=== PATIENT | male | born 1980 | race American Indian/Alaskan Native ===

== ENCOUNTER 2017-05-17 14:00 | Emergency (ER) | payer SELFPAY ==
--- NOTE | 2017-05-17 14:58 | Emergency Department Report ---
Chief Complaint: Chest Pain Stated Complaint: CHEST PAIN/DIFFICULTY BREATHING Time Seen by Provider: 05/17/17 14:58 - HPI History of Present Illness: Patient here reports that he has been having chest pain 1 week and started coughing 5 days ago. He also reports difficulty breathing. He said he's been having nausea and some stomach cramping pain on and off. Denies any fever or chills. [id number] cough and cold medicine taken without any relief. Patient denies any history of blood clots personally or in his family, denies any long distance travel by car or airplane, denies any recent surgery or immobilization, denies any hormone therapy. He denies any swelling in his legs or any pain in his legs. Denies any history of heart disease or lung disease. - ROS Review of Systems: All systems are negative unless stated in HPI above - Exam Vital Signs: Vital Signs 05/17/17 14:23 Temperature 98.4 F Pulse Rate 99 H Respiratory 18 Rate Blood Pressure 127/85 O2 Sat by Pulse 99 Oximetry Physical Exam: Gen.: This is a 37-year-old male well-nourished well-developed in no acute distress. Lungs: Clear to auscultate bilaterally, normal work of breathing. Patient with dry cough. No use of accessory muscles to breathe. Abdomen: Soft, nontender to palpate in all quadrants, no guarding no rebound tenderness. No CVA tenderness CV: Patient EKG sinus tachycardia at 112 BPM. S1, S2 Extremity: No clubbing, cyanosis or edema. MSE screening note: Focused history and physical exam performed. Due to findings the following was ordered: ED Medical Decision Making - Medical Decision Making MDM: Patient screened by provider in triage area. Appropriate protocol initiated and patient to be seen in main ED by ED Disposition for MSE Condition: Stable
[2017-05-17 15:31] LABS: Basophils % (Auto) 0.8 % (0.0-1.8); Eosinophils % (Auto) 1.1 % (0.0-4.3); Hematocrit 42.2 % (35.5-45.6); Hemoglobin 14.1 gm/dl (11.8-15.2); Mean Corpuscular HGB Conc 33 % (32-34); Mean Corpuscular Hemoglobin 29 pg (28-32); Mean Corpuscular Volume 87 fl (84-94); Red Blood Count 4.85 M/mm3 (3.65-5.03); Red Cell Distribution Width 13.4 % (13.2-15.2); White Blood Count 5.5 K/mm3 (4.5-11.0)
[2017-05-17 15:32] LABS: Platelet Count 147 K/mm3 (140-440)
--- NOTE | 2017-05-17 15:32 | XRay Report ---
Chest 2 views. History: Shortness of breath. Findings: The heart is enlarged with left ventricular configuration. There is mild central venous congestion. The lungs are clear. No pleural fluid is seen. Impression: Cardiomegaly with mild central venous congestion.
[2017-05-17 15:34] LABS: Bilirubin,Urine NEG (Negative); Blood,Urine NEG (Negative); Ketones,Urine NEG (Negative); Leukocyte Esterase,Urine NEG (Negative); Mucus,Urine 1+ /HPF; Nitrite,Urine NEG (Negative); Protein,Urine <15 mg/dL mg/dL (Negative); RBC,Urine < 1.0 /HPF (0.0-6.0); Urobilinogen,Urine < 2.0 mg/dL (<2.0)
[2017-05-17 15:39] LABS: INR 0.97 (0.87-1.13)
[2017-05-17 15:40] LABS: Partial Thromboplastin Time 34.1 Sec. (24.2-36.6)
[2017-05-17 15:45] LABS: Anion Gap 20 mmol/L; BUN/Creatinine Ratio 10; Blood Urea Nitrogen 12 mg/dL (9-20); Calcium 8.8 mg/dL (8.4-10.2); Carbon Dioxide 24 mmol/L (22-30); Chloride 104.1 mmol/L (98-107); Glucose 88 mg/dL (75-100); Potassium 4.8 mmol/L (3.6-5.0); Sodium 143 mmol/L (137-145)
[2017-05-17 15:46] LABS: Alanine Aminotransferase 18 units/L (7-56); Albumin 3.8 g/dL (3.9-5); Albumin/Globulin Ratio 1.1 %; Alkaline Phosphatase 53 units/L (35-129); Total Protein 7.2 g/dL (6.3-8.2)
[2017-05-17 15:49] LABS: Bilirubin,Direct < 0.2 mg/dL (0-0.2); Bilirubin,Indirect 0.4 mg/dL
[2017-05-17] MEDS ORDERED: DUONEB *Not for PRN Use IH ONE (22:48)
[2017-05-18 01:53] VITALS: BP 117/71
[2017-05-18] MEDS ORDERED: DUONEB *Not for PRN Use IH ONE (02:57)
--- NOTE | 2017-05-18 03:03 | Emergency Department Report ---
ED Chest Pain HPI - General Chief Complaint: Chest Pain Stated Complaint: CHEST PAIN/DIFFICULTY BREATHING Time Seen by Provider: 05/17/17 14:58 Source: patient Mode of arrival: Ambulatory Limitations: No Limitations - History of Present Illness Initial Comments: 37 yo male who comes in today due to chest pain and shortness of breath times one week. He states that the shortness of breath is worse when he walks. He denies any past medical history, but does admit to tobacco use times over ten years. He admits to smoking ten cigarettes daily. -: week(s) (one ) Onset: during rest, during exertion Pain Location: other (diffusely ) Pain Radiation: none Severity: moderate Severity scale (0 -10): 0 Quality: aching Consistency: intermittent Worsens With: exertion Context: recent illness Other Symptoms: cough Treatments Prior to Arrival: none - Related Data On Oral Contraceptives: No Previous Rx's Medication Instructions Recorded Last Taken Type ALBUTEROL Inhaler [ProAir HFA 2 puff IH QID PRN #1 inhalation 05/18/17 Unknown Rx Inhaler] Allergies Allergy/AdvReac Type Severity Reaction Status Date / Time No Known Allergies Allergy Verified 05/17/17 14:23 Heart Score - HEART Score History: Slightly suspicious (Not suspicious at all) EKG: Non-specific (Sinus tachycardia) Age: < 45 Risk factors: No known risk factors Troponin: < normal limit HEART Score: 1 ED Review of Systems ROS: Stated complaint: CHEST PAIN/DIFFICULTY BREATHING Other details as noted in HPI Constitutional: no symptoms reported Eyes: denies: eye pain, eye discharge, vision change ENT: congestion Respiratory: see HPI, cough, shortness of breath Cardiovascular: as per HPI Endocrine: no symptoms reported Gastrointestinal: denies: abdominal pain, nausea, diarrhea Genitourinary: denies: urgency, dysuria Musculoskeletal: denies: back pain, joint swelling, arthralgia Skin: denies: rash, lesions Neurological: denies: headache, weakness, paresthesias Psychiatric: denies: anxiety, depression Hematological/Lymphatic: denies: easy bleeding, easy bruising ED Past Medical Hx - Past Medical History Previous Medical History?: No - Surgical History Past Surgical History?: Yes Additional Surgical History: Hernia repair - Social History Smoking Status: Current Every Day Smoker - Medications Home Medications: Home Medications Medication Instructions Recorded Confirmed Last Taken Type ALBUTEROL Inhaler [ProAir HFA 2 puff IH QID PRN #1 inhalation 05/18/17 Unknown Rx Inhaler] ED Physical Exam - General Limitations: No Limitations General appearance: alert, in no apparent distress - Head Head exam: Present: atraumatic, normocephalic - Eye Eye exam: Present: normal appearance - ENT ENT exam: Present: mucous membranes moist - Neck Neck exam: Present: normal inspection - Respiratory Respiratory exam: Present: decreased breath sounds (bilaterally-tight ) - Cardiovascular Cardiovascular Exam: Present: regular rate - Extremities Exam Extremities exam: Present: normal inspection - Back Exam Back exam: Present: normal inspection - Neurological Exam Neurological exam: Present: alert, oriented X3 - Psychiatric Psychiatric exam: Present: normal affect, normal mood - Skin Skin exam: Present: warm, dry, intact, normal color. Absent: rash ED Course Vital Signs 05/17/17 05/18/17 05/18/17 14:23 01:51 03:48 Temperature 98.4 F 98 F Pulse Rate 99 H 69 Pulse Rate [ 96 H Anterior Bilateral Throughout] Respiratory 18 18 Rate Respiratory 14 Rate [Anterior Bilateral Throughout] Blood Pressure 127/85 Blood Pressure 117/71 [Left] O2 Sat by Pulse 99 96 Oximetry 05/18/17 03:58 Temperature Pulse Rate Pulse Rate [ 98 H Anterior Bilateral Throughout] Respiratory Rate Respiratory 16 Rate [Anterior Bilateral Throughout] Blood Pressure Blood Pressure [Left] O2 Sat by Pulse Oximetry - Reevaluation(s) Reevaluation #1: 05/18/17 04:16 Patient much improved after solumedrol and duoneb treatment. Home with an albuterol inhaler for prn use. STEPHANIE score - Stephanie Score Age > 65: (0) No Aspirin use within the Past 7 Days: (0) No 3 or more CAD Risk Factors: (0) No 2 or more Angina events in past 24 hrs: (0) No Known CAD with more than 50% Stenosis: (0) No Elevated Cardiac Markers: (0) No ST Deviation Greater than 0.5mm: (0) No STEPHANIE Score: 0 ED Medical Decision Making - Lab Data Result diagrams: 05/17/17 15:13 05/17/17 15:13 - EKG Data EKG shows normal: sinus rhythm (sinus tachycardia ) Rate: tachycardia - EKG Data When compared to previous EKG there are: previous EKG unavailable Interpretation: no acute changes - Radiology Data Radiology results: report reviewed Critical care attestation.: If time is entered above; I have spent that time in minutes in the direct care of this critically ill patient, excluding procedure time. ED Disposition Clinical Impression: Bronchitis, Tobacco abuse Disposition: DC-01 TO HOME OR SELFCARE Is pt being admited?: No Does the pt Need Aspirin: No Condition: Stable Instructions: Chronic Bronchitis (ED), Acute Bronchitis (ED) Additional Instructions: Use medicine as directed. Please establish with a provider on discharge. Return to the ED for worsening shortness of breath, fever, chills, or cough. Prescriptions: ALBUTEROL Inhaler [ProAir HFA Inhaler] 2 puff IH QID PRN #1 inhalation PRN Reason: Shortness Of Breath Referrals: PRIMARY CARE, [Primary Care Provider] - 3-5 Days Time of Disposition: 04:21
== END 2017-05-18 06:44 | disposition home or self-care (01) ==
LOC: ED 14:00
DX: J40 Bronchitis, not specified as acute or chronic (principal); F17.210 Nicotine dependence, cigarettes, uncomplicated
CPT/HCPCS: 36415; 71020; 80048; 80074; 81001; 84484; 85025; 85379; 85610; 85730; 93005; 93010; 94640; 96372; 99284; J2930

== ENCOUNTER 2017-05-20 08:20 | Inpatient (IN) | payer OTHER ==
[2017-05-20 09:10] LABS: Basophils % (Auto) 0.7 % (0.0-1.8); Eosinophils % (Auto) 0.9 % (0.0-4.3); Hematocrit 43.1 % (35.5-45.6); Hemoglobin 13.6 gm/dl (11.8-15.2); Mean Corpuscular HGB Conc 32 % (32-34); Mean Corpuscular Hemoglobin 28 pg (28-32); Mean Corpuscular Volume 88 fl (84-94); Red Blood Count 4.91 M/mm3 (3.65-5.03); Red Cell Distribution Width 13.9 % (13.2-15.2); White Blood Count 6.1 K/mm3 (4.5-11.0)
--- NOTE | 2017-05-20 09:12 | XRay Report ---
ROUTINE CHEST, TWO VIEWS: HISTORY: Shortness of breath. Cardiomegaly, pulmonary venous congestion and small pleural effusions have developed since 05/17/17. No evidence for pneumonia or pneumothorax. Normal bony structures. IMPRESSION: Mild CHF.
[2017-05-20 09:20] LABS: Anion Gap 18 mmol/L; BUN/Creatinine Ratio 15; Blood Urea Nitrogen 15 mg/dL (9-20); Calcium 8.5 mg/dL (8.4-10.2); Carbon Dioxide 21 mmol/L (22-30); Chloride 110.2 mmol/L (98-107); Glucose 97 mg/dL (75-100); Potassium 4.5 mmol/L (3.6-5.0); Sodium 145 mmol/L (137-145)
[2017-05-20 09:21] LABS: Platelet Count 156 K/mm3 (140-440)
[2017-05-20] MEDS ORDERED: NACL 0.9% 1000 ML 1,000 ML IV ONE (09:21)
[2017-05-20 09:33] LABS: Alanine Aminotransferase 26 units/L (7-56); Albumin 3.7 g/dL (3.9-5); Albumin/Globulin Ratio 1.1 %; Alkaline Phosphatase 51 units/L (35-129); Lipase 33 units/L (13-60)
[2017-05-20 09:34] LABS: Bilirubin,Direct < 0.2 mg/dL (0-0.2); Bilirubin,Indirect 0.1 mg/dL
[2017-05-20] MEDS ORDERED: LASIX IV ONE (09:37)
[2017-05-20 09:47] LABS: Creatine Kinase MB 6.8 ng/mL (0.0-4.0)
[2017-05-20] MEDS ORDERED: DILAUDID IV ONE (09:48)
[2017-05-20] MEDS ORDERED: ZOFRAN IV ONE (09:48)
[2017-05-20] MEDS ORDERED: NACL 0.9% 1000 ML 1,000 ML ONE (09:50)
[2017-05-20] MEDS ORDERED: DILAUDID ONE (09:51)
[2017-05-20] MEDS ORDERED: ZOFRAN ONE (09:52)
--- NOTE | 2017-05-20 12:31 | Cat Scan Report ---
CTA CHEST: HISTORY: Shortness of breath, chest pain. COMPARISON: none. TECHNIQUE: Helical CT in 1.25mm intervals following IV contrast. Pulmonary embolus protocol. Sagittal and coronal reformatted images. Rotational MIP images. FINDINGS: Contrast bolus is satisfactory. No pulmonary embolus is identified. Thyroid gland: Normal. Tracheobronchial tree: Normal. Esophagus: Normal. Heart: Mild to moderate cardiomegaly. Pericardium: Moderate pericardial effusion. Mediastinum: Normal. Lung Hollis: Trace left pleural effusion and moderate layering right pleural effusion are identified. Mild compressive atelectasis in the lower lobes. No infiltrate, mass or pneumothorax. Musculoskeletal: Normal. Limited images of the upper abdomen suggesting numerous tiny liver and renal cysts. IMPRESSION: No evidence for pulmonary embolus. Findings compatible with mild CHF or volume overload. The liver and kidneys are incompletely imaged but there appear to be numerous tiny cysts. Polycystic liver and kidney disease?
--- NOTE | 2017-05-20 12:34 | Emergency Department Report ---
ED Shortness of Breath HPI - General Chief Complaint: Dyspnea/Respdistress Stated Complaint: SOB,CHEST PAIN Time Seen by Provider: 05/20/17 09:17 Source: patient, family Mode of arrival: Ambulatory Limitations: No Limitations - History of Present Illness Initial Comments: 37-year-old male with no significant past medical history presents to the hospital place of dyspnea 10 days. Patient has shortness of breath at rest, exertion, orthopnea, and PND. Patient was here on May 17 for similar symptoms. He received albuterol and was discharged on albuterol inhaler. Patient reports symptoms worsen despite treatment. Complains of nonproductive cough. Sternal chest pain that feels like a "constant punching sensation", and denies fever, recent travel, sick contacts, or calf tenderness. Patient has nausea and vomiting the last vomiting 4 days ago. Patient continues to have daily watery stools with 3 episodes a day. Crampy intermittent abdominal pain reported. Patient smoke cigarettes daily up until worsening dyspnea several days ago. - Related Data Previous Rx's Medication Instructions Recorded Last Taken Type ALBUTEROL Inhaler [ProAir HFA 2 puff IH QID PRN #1 inhalation 05/18/17 Unknown Rx Inhaler] Allergies Allergy/AdvReac Type Severity Reaction Status Date / Time No Known Allergies Allergy Verified 05/17/17 14:23 ED Review of Systems ROS: Stated complaint: SOB,CHEST PAIN Other details as noted in HPI Comment: All other systems reviewed and negative Other: Constitutional: No fevers chills Eyes: No eye pain visual changes ENT: No ear pain or throat pain Neck: Denies pain Respiratory: As per HPI Cardiovascular: As per HPI GI: As per HPI : Denies dysuria Musculoskeletal: Denies back pain Skin: Denies rash, lesions, erythema Neurologic: Denies headache, numbness, weakness Psychiatric: Denies suicidal ideation, hallucinations ED Past Medical Hx - Surgical History Additional Surgical History: Hernia repair - Social History Smoking Status: Current Every Day Smoker Substance Use Type: None - Medications Home Medications: Home Medications Medication Instructions Recorded Confirmed Last Taken Type ALBUTEROL Inhaler [ProAir HFA 2 puff IH QID PRN #1 inhalation 05/18/17 Unknown Rx Inhaler] ED Physical Exam - General Limitations: No Limitations - Other Other exam information: General: No limitations, patient is alert in no acute distress Head exam: Atraumatic, normocephalic Eyes exam: Normal appearance ENT: Moist mucous membrane, normal oropharynx Neck exam: Normal inspection, full range of motion, no meningismus nontender Respiratory exam: Bilateral crackles, mild tachypnea, no accessory muscle use Cardiovascular: Normal rate and rhythm, normal heart sounds, chest wall nontender Abdomen: Soft, nondistended, and nontender, with normal bowel sounds, no rebound, or guarding Extremity: Full range of motion normal inspection no deformity, no calf tenderness or edema Back: Normal Inspection, full range of motion, no tenderness Neurologic: Alert, oriented x3, cranial nerves intact, no motor or sensory deficit Psychiatric: normal affect, normal mood Skin: Warm, dry, intact ED Course Vital Signs 05/20/17 05/20/17 05/20/17 08:24 08:57 09:01 Temperature 97.4 F L 98.3 F Pulse Rate 86 110 H Respiratory 20 31 H 23 Rate Blood Pressure 152/86 Blood Pressure 136/66 [Left] O2 Sat by Pulse 97 94 99 Oximetry - Consultations Consultation #1: 05/20/17 12:40 case d/w Neda sumner, will evaluate pt ED Medical Decision Making - Lab Data Result diagrams: 05/20/17 08:51 05/20/17 08:51 Lab Results 05/20/17 05/20/17 05/20/17 Range/Units 08:51 08:51 08:51 WBC 6.1 (4.5-11.0) K/mm3 RBC 4.91 (3.65-5.03) M/mm3 Hgb 13.6 (11.8-15.2) gm/dl Hct 43.1 (35.5-45.6) % MCV 88 (84-94) fl MCH 28 (28-32) pg MCHC 32 (32-34) % RDW 13.9 (13.2-15.2) % Plt Count 156 (140-440) K/mm3 Lymph % (Auto) 36.8 H (13.4-35.0) % [place] % (Auto) 7.1 (0.0-7.3) % Eos % (Auto) 0.9 (0.0-4.3) % Baso % (Auto) 0.7 (0.0-1.8) % Lymph # 2.3 (1.2-5.4) K/mm3 [place] # 0.4 (0.0-0.8) K/mm3 Eos # 0.1 (0.0-0.4) K/mm3 Baso # 0.0 (0.0-0.1) K/mm3 Seg Neutrophils % 54.5 (40.0-70.0) % Seg Neutrophils # 3.3 (1.8-7.7) K/mm3 Sodium 145 (137-145) mmol/L Potassium 4.5 (3.6-5.0) mmol/L Chloride 110.2 H (98-107) mmol/L Carbon Dioxide 21 L (22-30) mmol/L Anion Gap 18 mmol/L BUN 15 (9-20) mg/dL Creatinine 1.0 (0.8-1.5) mg/dL Estimated GFR > 60 ml/min BUN/Creatinine Ratio 15 % Glucose 97 (75-100) mg/dL Calcium 8.5 (8.4-10.2) mg/dL Total Bilirubin 0.30 (0.1-1.2) mg/dL Direct Bilirubin < 0.2 (0-0.2) mg/dL Indirect Bilirubin 0.1 mg/dL AST 29 (5-40) units/L ALT 26 (7-56) units/L Alkaline Phosphatase 51 (35-129) units/L Total Creatine Kinase (55-170) units/L CK-MB (CK-2) (0.0-4.0) ng/mL CK-MB (CK-2) Rel Index (0-4) Troponin T (0.00-0.029) ng/mL NT-Pro-B Natriuret Pep (0-450) pg/mL Total Protein 7.0 (6.3-8.2) g/dL Albumin 3.7 L (3.9-5) g/dL Albumin/Globulin Ratio 1.1 % Lipase 33 (13-60) units/L 05/20/17 05/20/17 Range/Units 08:51 08:51 WBC (4.5-11.0) K/mm3 RBC (3.65-5.03) M/mm3 Hgb (11.8-15.2) gm/dl Hct (35.5-45.6) % MCV (84-94) fl MCH (28-32) pg MCHC (32-34) % RDW (13.2-15.2) % Plt Count (140-440) K/mm3 Lymph % (Auto) (13.4-35.0) % [place] % (Auto) (0.0-7.3) % Eos % (Auto) (0.0-4.3) % Baso % (Auto) (0.0-1.8) % Lymph # (1.2-5.4) K/mm3 [place] # (0.0-0.8) K/mm3 Eos # (0.0-0.4) K/mm3 Baso # (0.0-0.1) K/mm3 Seg Neutrophils % (40.0-70.0) % Seg Neutrophils # (1.8-7.7) K/mm3 Sodium (137-145) mmol/L Potassium (3.6-5.0) mmol/L Chloride (98-107) mmol/L Carbon Dioxide (22-30) mmol/L Anion Gap mmol/L BUN (9-20) mg/dL Creatinine (0.8-1.5) mg/dL Estimated GFR ml/min BUN/Creatinine Ratio % Glucose (75-100) mg/dL Calcium (8.4-10.2) mg/dL Total Bilirubin (0.1-1.2) mg/dL Direct Bilirubin (0-0.2) mg/dL Indirect Bilirubin mg/dL AST (5-40) units/L ALT (7-56) units/L Alkaline Phosphatase (35-129) units/L Total Creatine Kinase 553 H (55-170) units/L CK-MB (CK-2) 6.8 H (0.0-4.0) ng/mL CK-MB (CK-2) Rel Index 1.2 (0-4) Troponin T 0.012 (0.00-0.029) ng/mL NT-Pro-B Natriuret Pep 7505 H (0-450) pg/mL Total Protein (6.3-8.2) g/dL Albumin (3.9-5) g/dL Albumin/Globulin Ratio % Lipase (13-60) units/L - EKG Data -: EKG Interpreted by Ok EKG shows normal: sinus rhythm, axis (67), QRS complexes (95), ST-T waves (lat t inv, inf t inv) Rate: tachycardia (108) - EKG Data When compared to previous EKG there are: no significant change (05/17/17) - Radiology Data Radiology results: report reviewed cxr: cmg, mild chf ct chest angio: mild pulm embolus, findings compatible with mild chf or volume overload. - Medical Decision Making Patient will be admitted to the hospital for nausea CHF Lasix 20 mg IV given with repeat urine output in the ED Cardiology has been consulted - Differential Diagnosis chf, pneumonia, pe, bronchitis Critical Care Time: No Critical care attestation.: If time is entered above; I have spent that time in minutes in the direct care of this critically ill patient, excluding procedure time. ED Disposition Clinical Impression: Cardiomegaly, Acute CHF Disposition: OP ADMIT IP TO THIS HOSP Is pt being admited?: Yes Condition: Stable Time of Disposition: 12:34 (Dr Perez/hosp)
--- NOTE | 2017-05-20 13:05 | Consultation ---
History of Present Illness Consult date: 05/20/17 Requesting physician: MELODY MASSEY Consult reason: congestive heart failure History of present illness: The patient is a 37 YO male with a past medical history significant for occasional marijuana use and tobacco use. He presented with c/o chest pain, SOB and NAQVI for the past 1.5 weeks. He reports this his symptoms began when he developed a cold. He was experiencing nasal congestion and productive cough for several days. These symptoms resolved but his chest pain, SOB and NAQVI persisted. He describes his chest pain as a nonexertional, nonradiating midsternal "punching" pain which is sometimes aggravated by lying on his side. He states that he develops NAQVI with any activity at all, and cannot climb a flight of stairs without stopping to catch his breath. Patient also c/o nausea and vomiting and daily watery stools for the past several days. Prior to the past several weeks, he has worked as a biofuels plant construction worker framing [employer] and has had no difficulty with physical activity. Of note, pt was evaluated at [facility] ED on 05/17/2017 for similar symptoms. He received albuterol and was discharged on albuterol inhaler. He reports that his symptoms continued to worsen and thus he is seeking evaluation again. Chest CTA following admission was negative for PE, showed trace left pleural effusion and moderate layering right pleural effusion, numerous tiny cysts on the liver and kidneys. Pro-BNP 7505; total CK 553. Past History Past Medical History: No medical history Social history: other (occasional marijuana use). denies: smoking, alcohol abuse Family history: other (mother with "heart problems") Medications and Allergies Allergies Allergy/AdvReac Type Severity Reaction Status Date / Time No Known Allergies Allergy Verified 05/17/17 14:23 Home Medications Medication Instructions Recorded Confirmed Last Taken Type ALBUTEROL Inhaler [ProAir HFA 2 puff IH QID PRN #1 inhalation 05/18/17 05/20/17 Unknown Rx Inhaler] Review of Systems Constitutional: no weight loss, no weight gain, no fever, no chills, no sweats Ears, nose, mouth and throat: no ear pain, no nose pain, no sinus pressure, no sinus pain Cardiovascular: chest pain, shortness of breath, dyspnea on exertion, decreased exercise tolerance, no palpitations, no rapid/irregular heart beat, no edema, no syncope, no lightheadedness, no high blood pressure, no leg edema Respiratory: cough with sputum, shortness of breath, dyspnea on exertion, congestion, no wheezing, no pain on inspiration Gastrointestinal: diarrhea, no abdominal pain, no nausea, no vomiting, no constipation Genitourinary Male: no dysuria, no hematuria, no flank pain, no discharge, no urinary frequency, no urinary hesitancy Musculoskeletal: no neck stiffness, no neck pain, no shooting arm pain, no arm numbness/tingling, no low back pain, no shooting leg pain, no leg numbness/ tingling, no redness of joints Integumentary: no rash, no pruritis, no redness, no sores, no wounds Neurological: no head injury, no paralysis, no weakness, no parathesias, no numbness, no tingling, no seizures, no syncope Psychiatric: no anxiety Endocrine: no cold intolerance, no heat intolerance Hematologic/Lymphatic: no easy bruising, no easy bleeding, no lymphadenopathy Allergic/Immunologic: no urticaria, no wheezing, no persistent infections Physical Examination Vital Signs Temp Pulse Resp BP Pulse Ox 97.4 F L 86 20 152/86 97 05/20/17 08:24 05/20/17 08:24 05/20/17 08:24 05/20/17 08:24 05/20/17 08:24 General appearance: no acute distress HEENT: Positive: PERRL, Normocephaly, Mucus Membranes Moist Neck: Positive: neck supple, trachea midline Cardiac: Positive: S1/S2, S3, Tachycardia Lungs: Positive: Rales Neuro: Positive: Grossly Intact, Cranial Nerve 2-12 Intact Abdomen: Positive: Unremarkable, Soft, Active Bowel Sounds. Negative: Tender Skin: Positive: Clear. Negative: Rash, Wound Musculoskeletal: No Fluid Collection, No Pain, Normal Range of Motion Extremities: Absent: edema Results 05/20/17 08:51 05/20/17 08:51 Cardiac Enzymes 05/20/17 05/20/17 Range/Units 08:51 08:51 AST 29 (5-40) units/L CK-MB (CK-2) 6.8 H (0.0-4.0) ng/mL CBC 05/20/17 Range/Units 08:51 WBC 6.1 (4.5-11.0) K/mm3 RBC 4.91 (3.65-5.03) M/mm3 Hgb 13.6 (11.8-15.2) gm/dl Hct 43.1 (35.5-45.6) % Plt Count 156 (140-440) K/mm3 Lymph # 2.3 (1.2-5.4) K/mm3 [place] # 0.4 (0.0-0.8) K/mm3 Eos # 0.1 (0.0-0.4) K/mm3 Baso # 0.0 (0.0-0.1) K/mm3 Comprehensive Metabolic Panel 05/20/17 05/20/17 Range/Units 08:51 08:51 Sodium 145 (137-145) mmol/L Potassium 4.5 (3.6-5.0) mmol/L Chloride 110.2 H (98-107) mmol/L Carbon Dioxide 21 L (22-30) mmol/L BUN 15 (9-20) mg/dL Creatinine 1.0 (0.8-1.5) mg/dL Glucose 97 (75-100) mg/dL Calcium 8.5 (8.4-10.2) mg/dL Direct Bilirubin < 0.2 (0-0.2) mg/dL Indirect Bilirubin 0.1 mg/dL AST 29 (5-40) units/L ALT 26 (7-56) units/L Alkaline Phosphatase 51 (35-129) units/L Total Protein 7.0 (6.3-8.2) g/dL Albumin 3.7 L (3.9-5) g/dL - Imaging and Cardiology Echo: pending EKG: report reviewed, image reviewed EKG interpretations - Telemetry EKG Rhythm: Sinus Tachycardia - EKG Sinus rhythms and dysrhythmias: sinus tachycardia Chamber hypertrophy or enlargement: left ventricular hypertro Repolarization changes or abnormalities: early repolarization due to LVH Assessment and Plan Obtain echo. Initiate diuresis with IV lasix. Initiate Coreg and lisinopril. Plan for lexiscan MPI stress test in AM. The patient has been seen in conjunction with Dr. Pierre who agrees with the assessment and plan of care. - Patient Problems (1) Acute heart failure Current Visit: Yes Status: Acute (2) Chest pain, atypical Current Visit: Yes Status: Acute (3) Sinus tachycardia Current Visit: Yes Status: Acute (4) Nausea and vomiting Current Visit: Yes Status: Acute (5) Diarrhea Current Visit: Yes Status: Acute (6) Tobacco use Current Visit: Yes Status: Chronic
--- NOTE | 2017-05-20 15:11 | History and Physical Report ---
History of Present Illness Chief complaint: I cant breathe History of present illness: 37 YO male with Nicotine Dependence presents to ED for evaluation. Pt states that he has experienced shortness of breath for the past 10 days with worsening symptoms over the past 3 days. Pt acknowledges Orhtopnea/PND, Decreased exercise tolerance. Pt acknowledges pain in his chest. Pain is 6/10, constant, substernal, nonradiating, not worened with exertion or relieved with rest. Pt states that symptoms got acutely worse after catching a "cold". Pt states that his symptoms have worsened in spite of nebulizer treatment. Pt acknowledges nonproductive cough, but denies fever, chills, palpitations, NVD, syncope, recent ill contacts, back pain, trauma, hemoptysis, BRBPR, Skin rash, prolonged immobility/travel, individual/family history of DVT/PE, unilateral leg swelling , calf pain. Pt seen and evaluated in ED and found to be in respiratory distress and found to have evidence of new onset CHF. Pt treated [facility] CHF protocol. Past History Past Medical History: No medical history, other (Nicotine Dependence) Past Surgical History: hernia repair Social history: single, smoking. denies: alcohol abuse Family history: CAD Medications and Allergies Allergies Allergy/AdvReac Type Severity Reaction Status Date / Time No Known Allergies Allergy Verified 05/17/17 14:23 Home Medications Medication Instructions Recorded Confirmed Last Taken Type ALBUTEROL Inhaler [ProAir HFA 2 puff IH QID PRN #1 inhalation 05/18/17 05/20/17 Unknown Rx Inhaler] Active Meds: Active Medications Carvedilol (Coreg) 3.125 mg PO ONCE ONE Stop: 05/20/17 15:01 Furosemide (Lasix) 40 mg IV BID MOSES Lisinopril (Zestril) 2.5 mg PO ONCE ONE Stop: 05/20/17 15:01 Review of Systems Constitutional: no weight loss, no weight gain, no fever, no chills, no sweats Ears, nose, mouth and throat: no ear pain, no ear discharge, no tinnitis, no decreased hearing, no nose pain, no nasal congestion Cardiovascular: chest pain, orthopnea, shortness of breath, paroxysmal nocturnal dyspnea Respiratory: cough Gastrointestinal: no abdominal pain, no nausea, no vomiting, no diarrhea Genitourinary Male: no hematuria, no flank pain, no discharge, no urinary frequency, no urinary hesitancy Rectal: no pain, no incontinence, no bleeding Musculoskeletal: no neck stiffness, no neck pain, no shooting arm pain, no arm numbness/tingling, no low back pain, no shooting leg pain Integumentary: no rash, no pruritis, no redness, no sores, no wounds, no jaundice Neurological: no transient paralysis, no paralysis, no weakness, no parathesias , no numbness, no tingling, no seizures Psychiatric: no memory loss, no change in sleep habits, no sleep disturbances, no insomnia, no hypersomnia, no change in appetite, no change in libido Endocrine: no cold intolerance, no heat intolerance, no polyphagia, no excessive thirst, no polydipsia, no polyuria, no nocturia Hematologic/Lymphatic: no easy bruising, no easy bleeding Allergic/Immunologic: no urticaria, no allergic rhinitis, no wheezing Exam - Constitutional Vitals: Temp Pulse Resp BP Pulse Ox 97.9 F 106 H 30 H 139/68 99 05/20/17 13:48 05/20/17 13:48 05/20/17 13:48 05/20/17 13:48 05/20/17 13:48 General appearance: Present: mild distress - EENT Eyes: Present: PERRL ENT: hearing intact, clear oral mucosa - Neck Neck: Present: supple, normal ROM - Respiratory Respiratory effort: labored Respiratory: bilateral: diminished - Cardiovascular Heart Sounds: Present: S1 & S2. Absent: rub, click - Extremities Extremities: pulses symmetrical, No edema Extremity abnormal: edema Peripheral Pulses: within normal limits - Abdominal General gastrointestinal: Present: soft, non-tender, non-distended, normal bowel sounds Male genitourinary: Present: normal - Integumentary Integumentary: Present: clear, warm, dry - Musculoskeletal Musculoskeletal: gait normal, strength equal bilaterally - Psychiatric Psychiatric: appropriate mood/affect, intact judgment & insight - Neurologic Neurologic: CNII-XII intact, moves all extremities Results - Labs CBC & Chem 7: 05/20/17 08:51 05/20/17 08:51 Labs: Abnormal lab results 05/20/17 05/20/17 05/20/17 Range/Units 08:51 08:51 08:51 Lymph % (Auto) 36.8 H (13.4-35.0) % Chloride 110.2 H (98-107) mmol/L Carbon Dioxide 21 L (22-30) mmol/L Total Creatine Kinase (55-170) units/L CK-MB (CK-2) (0.0-4.0) ng/mL NT-Pro-B Natriuret Pep (0-450) pg/mL Albumin 3.7 L (3.9-5) g/dL 05/20/17 05/20/17 Range/Units 08:51 08:51 Lymph % (Auto) (13.4-35.0) % Chloride (98-107) mmol/L Carbon Dioxide (22-30) mmol/L Total Creatine Kinase 553 H (55-170) units/L CK-MB (CK-2) 6.8 H (0.0-4.0) ng/mL NT-Pro-B Natriuret Pep 7505 H (0-450) pg/mL Albumin (3.9-5) g/dL Assessment and Plan - Patient Problems (1) Acute CHF Current Visit: Yes Status: Acute Qualifiers: Congestive heart failure type: systolic Qualified Code(s): I50.21 - Acute systolic (congestive) heart failure Plan to address problem: Admit to telemetry, serial cardiac enzymes, ekg, telemetry, fluid restriction, daily weight, low sodium diet, monitor uop q shift, afterload reduction, echo, Cardiology consulted. (2) Acute respiratory failure Current Visit: Yes Status: Acute Plan to address problem: Supplemental oxygen, nebs, NIPPV as clinically indicated, pulmonary toilet, aspiration precautions, diuresis. (3) Nicotine dependence Current Visit: Yes Status: Acute Plan to address problem: Pt refused to pick quit date. (4) ACS (acute coronary syndrome) Current Visit: Yes Status: Acute Plan to address problem: serial cardiac enzymes, ekg, telemetry, morphine, oxygen, nitro tabs, aspirin (5) DVT prophylaxis Current Visit: Yes Status: Acute
[2017-05-20] MEDS ORDERED: ZESTRIL PO ONE (16:00)
[2017-05-20] MEDS ORDERED: COREG PO ONE (16:00)
[2017-05-20 21:06] LABS: Urine Drugs of Abuse Note Disclamer
[2017-05-20] MEDS: TESSALON PERLES PO PRN (22:28)
[2017-05-20] MEDS: LASIX IV SCH (22:28)
[2017-05-21 04:57] LABS: Anion Gap 17 mmol/L; BUN/Creatinine Ratio 13; Blood Urea Nitrogen 16 mg/dL (9-20); Calcium 8.7 mg/dL (8.4-10.2); Carbon Dioxide 25 mmol/L (22-30); Chloride 102.8 mmol/L (98-107); Glucose 90 mg/dL (75-100); Potassium 3.8 mmol/L (3.6-5.0); Sodium 141 mmol/L (137-145)
[2017-05-21] MEDS ORDERED: LEXISCAN IV ONE ×2 (08:10→08:15)
[2017-05-21] MEDS ORDERED: LOPRESSOR PO SCH (10:00)
[2017-05-21] MEDS: LASIX IV SCH ×2 (10:14→21:56)
--- NOTE | 2017-05-21 10:21 | Progress Note ---
Assessment and Plan Assessment and plan: --Acute coronary syndrome; Stress test, negative for ischemia, findings consistent with cardiomyopathy Follow echocardiogram for left ventricular function ejection fraction Cardiology following --Acute congestive heart failure, probably systolic Unknown ejection fraction, follow echocardiogram Oxygen, IV diuretics, sodium and fluid restriction, input output monitoring Cardiology following --Ongoing tobacco use; smoking cessation counseling done, nicotine patch as needed --Marijuana abuse:counselling done --DVT prophylaxis; Lovenox follow echocardiogram, LV function, adjust medications Possible discharge in 1-2 days if stable Cardiology evaluation and recommendations noted and appreciated History Interval history: Patient seen and examined in his room this morning medical records reviewed Patient complains of mild shortness of breath, denies chest pain Underwent stress test, no ischemia, findings consistent with cardiomyopathy Echo pending Alert awake oriented 3 Not in acute distress Vital signs reviewed Hospitalist Physical - Constitutional Vitals: Temp Pulse Resp BP Pulse Ox 98.2 F 98 H 18 122/90 97 05/21/17 04:09 05/21/17 10:14 05/21/17 04:09 05/21/17 10:14 05/21/17 04:09 General appearance: Present: mild distress, well-nourished - EENT Eyes: Present: PERRL, EOM intact - Neck Neck: Present: supple, normal ROM - Respiratory Respiratory effort: normal Respiratory: bilateral: diminished, rales, negative: rhonchi, wheezing - Cardiovascular Rhythm: regular Heart Sounds: Present: S1 & S2 - Extremities Extremities: no ischemia, No edema - Abdominal General gastrointestinal: soft, non-tender, non-distended, normal bowel sounds - Integumentary Integumentary: Present: clear, warm - Psychiatric Psychiatric: appropriate mood/affect, cooperative - Neurologic Neurologic: CNII-XII intact, moves all extremities Results - Labs CBC & Chem 7: 05/20/17 08:51 05/21/17 03:41 Labs: Laboratory Last Values WBC 6.1 K/mm3 (4.5-11.0) 05/20/17 08:51 RBC 4.91 M/mm3 (3.65-5.03) 05/20/17 08:51 Hgb 13.6 gm/dl (11.8-15.2) 05/20/17 08:51 Hct 43.1 % (35.5-45.6) 05/20/17 08:51 MCV 88 fl (84-94) 05/20/17 08:51 MCH 28 pg (28-32) 05/20/17 08:51 MCHC 32 % (32-34) 05/20/17 08:51 RDW 13.9 % (13.2-15.2) 05/20/17 08:51 Plt Count 156 K/mm3 (140-440) 05/20/17 08:51 Lymph % (Auto) 36.8 % (13.4-35.0) H 05/20/17 08:51 [place] % (Auto) 7.1 % (0.0-7.3) 05/20/17 08:51 Eos % (Auto) 0.9 % (0.0-4.3) 05/20/17 08:51 Baso % (Auto) 0.7 % (0.0-1.8) 05/20/17 08:51 Lymph # 2.3 K/mm3 (1.2-5.4) 05/20/17 08:51 [place] # 0.4 K/mm3 (0.0-0.8) 05/20/17 08:51 Eos # 0.1 K/mm3 (0.0-0.4) 05/20/17 08:51 Baso # 0.0 K/mm3 (0.0-0.1) 05/20/17 08:51 Seg Neutrophils % 54.5 % (40.0-70.0) 05/20/17 08:51 Seg Neutrophils # 3.3 K/mm3 (1.8-7.7) 05/20/17 08:51 Sodium 141 mmol/L (137-145) 05/21/17 03:41 Potassium 3.8 mmol/L (3.6-5.0) 05/21/17 03:41 Chloride 102.8 mmol/L (98-107) 05/21/17 03:41 Carbon Dioxide 25 mmol/L (22-30) 05/21/17 03:41 Anion Gap 17 mmol/L 05/21/17 03:41 BUN 16 mg/dL (9-20) 05/21/17 03:41 Creatinine 1.2 mg/dL (0.8-1.5) 05/21/17 03:41 Estimated GFR > 60 ml/min 05/21/17 03:41 BUN/Creatinine Ratio 13 % 05/21/17 03:41 Glucose 90 mg/dL (75-100) 05/21/17 03:41 Calcium 8.7 mg/dL (8.4-10.2) 05/21/17 03:41 Total Bilirubin 0.30 mg/dL (0.1-1.2) 05/20/17 08:51 Direct Bilirubin < 0.2 mg/dL (0-0.2) 05/20/17 08:51 Indirect Bilirubin 0.1 mg/dL 05/20/17 08:51 AST 29 units/L (5-40) 05/20/17 08:51 ALT 26 units/L (7-56) 05/20/17 08:51 Alkaline Phosphatase 51 units/L (35-129) 05/20/17 08:51 Total Creatine Kinase 553 units/L (55-170) H 05/20/17 08:51 CK-MB (CK-2) 6.8 ng/mL (0.0-4.0) H 05/20/17 08:51 CK-MB (CK-2) Rel Index 1.2 (0-4) 05/20/17 08:51 Troponin T 0.012 ng/mL (0.00-0.029) 05/20/17 08:51 NT-Pro-B Natriuret Pep 7505 pg/mL (0-450) H 05/20/17 08:51 Total Protein 7.0 g/dL (6.3-8.2) 05/20/17 08:51 Albumin 3.7 g/dL (3.9-5) L 05/20/17 08:51 Albumin/Globulin Ratio 1.1 % 05/20/17 08:51 Lipase 33 units/L (13-60) 05/20/17 08:51 Urine Opiates Screen Presumptive negative 05/20/17 21:01 Urine Methadone Screen Presumptive negative 05/20/17 21:01 Ur Barbiturates Screen Presumptive negative 05/20/17 21:01 Ur Phencyclidine Scrn Presumptive negative 05/20/17 21:01 Ur Amphetamines Screen Presumptive negative 05/20/17 21:01 U Benzodiazepines Scrn Presumptive negative 05/20/17 21:01 Urine Cocaine Screen Presumptive negative 05/20/17 21:01 U Marijuana (THC) Screen Presumptive positive 05/20/17 21:01 Drugs of Abuse Note Disclamer 05/20/17 21:01
--- NOTE | 2017-05-21 14:43 | Progress Note ---
Assessment and Plan Add beta jhonatan and MIHAELA inhibitor. At some point, he may benefit from coronary angiography. Echo is still being awaited. - Patient Problems (1) Acute heart failure Current Visit: Yes Status: Acute (2) Cardiomyopathy Current Visit: Yes Status: Acute (3) Atypical chest pain Current Visit: Yes Status: Acute (4) Sinus tachycardia Current Visit: Yes Status: Acute Subjective Date of service: 05/21/17 Principal diagnosis: Acute HF, Atypical CP Interval history: He still has intermittent chest pain. He is less short of breath this morning. Earlier today, he underwent a pharmacologic stress test with nuclear imaging. It showed a dilated left ventricle with mainly fixed defects but no significant ischemia. Gated ejection fraction is 10%. Objective Vital Signs Temp Pulse Resp BP BP Pulse Ox 05/21/17 10:14 98 H 122/90 05/21/17 08:48 104 H 126/91 05/21/17 08:45 106 H 126/91 05/21/17 08:44 104 H 141/73 05/21/17 08:43 112 H 118/83 05/21/17 08:29 89 115/83 05/21/17 05:00 106 H 05/21/17 04:09 98.2 F 99 H 18 131/91 97 05/21/17 00:13 98.5 F 97 H 18 139/83 95 05/20/17 21:01 98.5 F 102 H 18 119/80 98 05/20/17 20:30 99 H 27 H 119/83 97 05/20/17 20:20 104 H 36 H 119/83 96 05/20/17 20:10 107 H 14 125/81 98 05/20/17 20:00 101 H 17 125/81 98 05/20/17 19:50 107 H 23 125/81 98 05/20/17 19:40 98 H 28 H 92/55 97 05/20/17 19:30 113 H 33 H 90/72 97 05/20/17 19:20 109 H 25 H 90/72 97 05/20/17 19:12 113 H 37 H 130/95 96 05/20/17 19:00 99.4 F 109 H 28 H 130/95 120/74 99 05/20/17 18:50 113 H 22 130/95 98 05/20/17 18:40 103 H 27 H 130/95 99 05/20/17 18:30 107 H 36 H 111/79 98 05/20/17 18:20 112 H 26 H 111/79 99 05/20/17 18:10 107 H 39 H 111/79 98 05/20/17 18:00 103 H 27 H 111/79 97 05/20/17 17:50 113 H 24 126/91 98 05/20/17 17:40 103 H 21 123/91 98 05/20/17 17:30 102 H 17 120/97 100 05/20/17 17:20 103 H 21 120/97 96 05/20/17 17:10 117 H 42 H 142/85 97 05/20/17 17:00 113 H 35 H 129/88 97 05/20/17 16:50 112 H 29 H 129/88 98 05/20/17 16:40 106 H 26 H 124/81 98 05/20/17 16:30 108 H 26 H 124/81 97 05/20/17 16:20 104 H 22 122/88 98 05/20/17 16:10 93 H 32 H 119/82 95 05/20/17 16:02 106 H 119/81 05/20/17 16:01 106 H 119/81 05/20/17 16:00 107 H 31 H 119/81 95 05/20/17 15:50 110 H 33 H 72/44 95 05/20/17 15:40 108 H 28 H 128/90 96 05/20/17 15:30 116 H 37 H 128/90 93 05/20/17 15:20 110 H 31 H 131/86 96 05/20/17 15:10 102 H 34 H 100/66 97 05/20/17 15:00 111 H 36 H 129/79 97 05/20/17 14:50 96 H 15 129/79 96 05/20/17 14:40 115 H 37 H 129/78 98 - Physical Examination General: No Apparent Distress HEENT: Positive: PERRL, Normocephaly, Mucus Membranes Moist Neck: Positive: neck supple, trachea midline, JVD/HJR (elevated) Cardiac: Positive: Reg Rate and Rhythm, S1/S2 Lungs: Positive: clear to auscultation Neuro: Positive: Grossly Intact Abdomen: Positive: Soft, Active Bowel Sounds. Negative: Tender Skin: Positive: Clear. Negative: Rash Musculoskeletal: Normal Range of Motion Extremities: Present: normal. Absent: edema - Labs and Meds Comprehensive Metabolic Panel 05/21/17 Range/Units 03:41 Sodium 141 (137-145) mmol/L Potassium 3.8 (3.6-5.0) mmol/L Chloride 102.8 (98-107) mmol/L Carbon Dioxide 25 (22-30) mmol/L BUN 16 (9-20) mg/dL Creatinine 1.2 (0.8-1.5) mg/dL Glucose 90 (75-100) mg/dL Calcium 8.7 (8.4-10.2) mg/dL - Imaging and Cardiology EKG: image reviewed Echo: pending - EKG Sinus rhythms and dysrhythmias: sinus tachycardia Chamber hypertrophy or enlargement: left ventricular hypertro Repolarization changes or abnormalities: early repolarization due to LVH
[2017-05-21] MEDS: ASPIRIN PO SCH (15:24)
[2017-05-21] MEDS: TESSALON PERLES PO PRN (18:32)
--- NOTE | 2017-05-21 21:34 | Treadmill Report ---
LEXISCAN STRESS TEST REPORT REASON FOR STUDY: Chest pain. STRESS TEST PROTOCOL: The patient received 0.4 of Lexiscan intravenously over 10 seconds. Technetium-99 tetrofosmin was subsequently injected. Baseline EKG, normal sinus rhythm. Left ventricular hypertrophy with secondary repolarization abnormalities. Lexiscan EKG, no significant change from baseline. No chest pain. There were frequent ventricular ectopy at baseline and during Lexiscan infusion. IMPRESSION: Nondiagnostic due to baseline EKG abnormalities. Nuclear imaging report to follow. [facility]# [id number] AGO/NTS
[2017-05-21] MEDS: COREG PO SCH (21:56)
[2017-05-22 05:54] LABS: Anion Gap 20 mmol/L; BUN/Creatinine Ratio 22; Blood Urea Nitrogen 26 mg/dL (9-20); Calcium 8.4 mg/dL (8.4-10.2); Carbon Dioxide 24 mmol/L (22-30); Chloride 102.3 mmol/L (98-107); Glucose 102 mg/dL (75-100); Potassium 3.5 mmol/L (3.6-5.0); Sodium 143 mmol/L (137-145)
--- NOTE | 2017-05-22 07:00 | Treadmill Report ---
THALLIUM REPORT REASON FOR STUDY: Chest pain. IMAGING PROTOCOL: The patient received 10 mCi of Tc-99m tetrofosmin for rest imaging, and 28 mCi of Tc-99m tetrofosmin for stress imaging. Imaging for all procedures Imaging for all procedures was completed 30-90 minutes following the initial injection of Technetium 99m Tetrofosmin. SPECT imaging in the 180 degree arc was performed in the right anterior oblique projection. Computerized reconstruction of the images was performed for analysis. NUCLEAR IMAGING RESULTS: The left ventricular cavity appears severely dilated with stress imaging. There is no significant change with rest imaging. Distribution of radionuclide within the left ventricle revealed a medium size area of photo-induction involving the apex. The degree of photo-induction is moderate. Rest imaging does not show any significant improvement in this defect. There is also a small area of photo-induction involving the anterior and anteroseptal region. The degree of photo-induction is mild to moderate. Rest imaging does not show any significant improvement in this defect. In addition, there is a large area of photo-induction involving the inferior wall. The degree of photo-induction is moderate to severe. Rest imaging does not show any significant improvement in this defect. There is also a large area of photo-induction involving the inferolateral wall. The degree of photo-induction is moderate to severe. Rest imaging does not show any significant improvement in this defect. Gated SPECT imaging revealed severe global left ventricular hypokinesis. The calculated left ventricular ejection fraction is 10%. IMPRESSION: Severely dilated left ventricular cavity. Medium size fixed apical defect. Small fixed anterior and anteroseptal defect. Large fixed inferior wall defect. Large fixed inferolateral defect. Severe global left ventricular hypokinesis. EF 10%. These findings suggest prior infarction involving all 3 coronary artery territories. However, a cardiomyopathic process may also be present in this patient. No evidence of significant stress-induced ischemia. JOB# [id number] JEREMIAH/MACKENZIE BURKS
[2017-05-22] MEDS ORDERED: K-DUR PO ONE (09:17)
[2017-05-22] MEDS: LASIX IV SCH ×2 (10:37→21:21)
[2017-05-22] MEDS: COREG PO SCH ×2 (10:37→21:20)
[2017-05-22] MEDS: ASPIRIN PO SCH (10:38)
[2017-05-22] MEDS: ZESTRIL PO SCH (10:38)
--- NOTE | 2017-05-22 14:00 | Progress Note ---
Assessment and Plan His echocardiogram demonstrated a severely dilated LV with severe global hypokinesis and an EF of 10%. Spontaneous echo contrast, "smoke" a marker of blood stasis is present in the LV cavity. He will benefit from coronary angiography in a.m. The test has been discussed with the patient in detail and he has agreed to proceed. - Patient Problems (1) Acute combined systolic and diastolic heart failure Current Visit: Yes Status: Acute (2) Dilated cardiomyopathy Current Visit: Yes Status: Acute (3) Atypical chest pain Current Visit: Yes Status: Acute (4) Sinus tachycardia Current Visit: Yes Status: Acute Subjective Date of service: 05/22/17 Principal diagnosis: Acute HF, Atypical CP Interval history: He feels better. Echo is still pending. Objective Vital Signs Temp Pulse Pulse Resp BP BP Pulse Ox 05/22/17 10:38 109/62 05/22/17 10:37 118/80 05/22/17 04:06 98.0 F 85 18 109/64 99 05/21/17 23:55 98.0 F 87 20 134/83 100 05/21/17 21:56 90 129/81 05/21/17 21:00 97 H 05/21/17 20:16 96.3 F L 90 18 129/81 99 05/21/17 20:10 86 20 05/21/17 20:00 98.3 F 93 H 20 129/81 99 05/21/17 16:22 97.5 F L 88 16 107/70 97 05/21/17 16:16 98.3 F 103 H 16 123/83 99 - Physical Examination General: No Apparent Distress HEENT: Positive: PERRL, Normocephaly, Mucus Membranes Moist Neck: Positive: neck supple, trachea midline Cardiac: Positive: Reg Rate and Rhythm, S1/S2 Lungs: Positive: clear to auscultation Neuro: Positive: Grossly Intact Abdomen: Positive: Soft, Active Bowel Sounds. Negative: Tender Skin: Positive: Clear. Negative: Rash Musculoskeletal: Normal Range of Motion Extremities: Present: normal. Absent: edema - Labs and Meds Comprehensive Metabolic Panel 05/22/17 Range/Units 04:28 Sodium 143 (137-145) mmol/L Potassium 3.5 L (3.6-5.0) mmol/L Chloride 102.3 (98-107) mmol/L Carbon Dioxide 24 (22-30) mmol/L BUN 26 H (9-20) mg/dL Creatinine 1.2 (0.8-1.5) mg/dL Glucose 102 H (75-100) mg/dL Calcium 8.4 (8.4-10.2) mg/dL - Imaging and Cardiology EKG: image reviewed Echo: pending - Telemetry EKG Rhythm: Sinus Rhythm - EKG Sinus rhythms and dysrhythmias: sinus tachycardia Chamber hypertrophy or enlargement: left ventricular hypertro Repolarization changes or abnormalities: early repolarization due to LVH
--- NOTE | 2017-05-22 14:53 | Progress Note ---
Assessment and Plan Assessment and Plan (1) Acute CHF Current Visit: Yes Status: Acute Qualifiers: Congestive heart failure type: systolic Qualified Code(s): I50.21 - Acute systolic (congestive) heart failure Plan to address problem: Admit to telemetry, serial cardiac enzymes, ekg, telemetry, fluid restriction, daily weight, low sodium diet, monitor uop q shift, afterload reduction, echo, Cardiology consulted. Improving (2) Acute respiratory failure Current Visit: Yes Status: Acute Plan to address problem: Supplemental oxygen, nebs, NIPPV as clinically indicated, pulmonary toilet, aspiration precautions, diuresis. (3) Nicotine dependence Current Visit: Yes Status: Acute Plan to address problem: Pt refused to pick quit date. Nicoderm patch (4) ACS (acute coronary syndrome) Current Visit: Yes Status: Acute Plan to address problem: serial cardiac enzymes, ekg, telemetry, morphine, oxygen, nitro tabs, aspirin (5) DVT prophylaxis Current Visit: Yes Status: Acute Subjective Date of service: 05/22/17 Principal diagnosis: Acute HF, Atypical CP Interval history: Doing better,Less Sob Objective - Constitutional Vitals: Vital Signs - 12hr 05/22/17 05/22/17 05/22/17 04:06 10:37 10:38 Temperature 98.0 F Pulse Rate 85 Respiratory 18 Rate Blood Pressure 109/64 118/80 109/62 O2 Sat by Pulse 99 Oximetry General appearance: Present: no acute distress, well-nourished - EENT Eyes: PERRL, EOM intact ENT: hearing intact, clear oral mucosa Ears: bilateral: normal - Neck Neck: supple, normal ROM - Respiratory Respiratory effort: normal Respiratory: bilateral: CTA - Breasts Breasts: normal - Cardiovascular Rhythm: regular Heart Sounds: Present: S1 & S2. Absent: gallop, rub Extremities: pulses intact, No edema, normal color, Full ROM - Gastrointestinal General gastrointestinal: Present: soft, non-tender, non-distended, normal bowel sounds - Genitourinary Male genitourinary: normal - Integumentary Integumentary: clear, warm, dry - Musculoskeletal Musculoskeletal: 1, strength equal bilaterally - Neurologic Neurologic: moves all extremities - Psychiatric Psychiatric: memory intact, appropriate mood/affect, intact judgment & insight - Labs CBC & Chem 7: 05/23/17 05:44 05/24/17 04:55 Labs: Abnormal lab results 05/22/17 Range/Units 04:28 Potassium 3.5 L (3.6-5.0) mmol/L BUN 26 H (9-20) mg/dL Glucose 102 H (75-100) mg/dL
[2017-05-22] MEDS ORDERED: NACL 0.9% 500 ML 500 ML IV SCH (16:00)
[2017-05-23] MEDS ORDERED: NACL 0.9% 500 ML 500 ML IV SCH (05:00)
[2017-05-23 06:10] LABS: Basophils % (Auto) 0.6 % (0.0-1.8); Eosinophils % (Auto) 2.3 % (0.0-4.3); Hematocrit 46.2 % (35.5-45.6); Hemoglobin 15.3 gm/dl (11.8-15.2); Mean Corpuscular HGB Conc 33 % (32-34); Mean Corpuscular Hemoglobin 29 pg (28-32); Mean Corpuscular Volume 87 fl (84-94); Red Blood Count 5.31 M/mm3 (3.65-5.03); Red Cell Distribution Width 13.5 % (13.2-15.2); White Blood Count 5.9 K/mm3 (4.5-11.0)
[2017-05-23 06:14] LABS: Platelet Count 144 K/mm3 (140-440)
[2017-05-23 06:18] LABS: INR 0.99 (0.87-1.13)
[2017-05-23 06:22] LABS: Anion Gap 14 mmol/L; BUN/Creatinine Ratio 19; Blood Urea Nitrogen 25 mg/dL (9-20); Calcium 8.5 mg/dL (8.4-10.2); Carbon Dioxide 27 mmol/L (22-30); Chloride 101.5 mmol/L (98-107); Glucose 99 mg/dL (75-100); Potassium 3.9 mmol/L (3.6-5.0); Sodium 139 mmol/L (137-145)
[2017-05-23] MEDS ORDERED: ASPIRIN PO ONE (06:30)
[2017-05-23] MEDS ORDERED: NACL 0.9% 500 ML 500 ML ONE (08:08)
[2017-05-23] MEDS ORDERED: HEPARIN 10,000 UNITS/10 ML ONE (08:31)
[2017-05-23] MEDS ORDERED: HEPARIN/NS 5000 UNIT/500ML(CATH LAB) 1,000 ML IR ONE (08:31)
[2017-05-23] MEDS ORDERED: CALAN ONE (08:31)
[2017-05-23] MEDS ORDERED: NITROGLYCERIN SYRINGE 3 ML ONE (08:32)
[2017-05-23] MEDS ORDERED: VERSED ONE (08:32)
[2017-05-23] MEDS ORDERED: XYLOCAINE 2% INFILTRATI ONE (08:32)
[2017-05-23] MEDS ORDERED: SUBLIMAZE ONE (08:33)
--- NOTE | 2017-05-23 09:18 | Progress Note ---
Assessment and Plan s/p [facility] this AM which revealed patent coronaries, EF 10%. Cont coreg and lisinopril. Initiate aldactone. Convert IV lasix to PO lasix, 40mg daily. Order LifeVest. The patient has been seen in conjunction with Dr. Newby who agrees with the assessment and plan of care. - Patient Problems (1) Acute combined systolic and diastolic heart failure Current Visit: Yes Status: Acute (2) Nonischemic dilated cardiomyopathy Current Visit: Yes Status: Acute (3) Chest pain, atypical Current Visit: Yes Status: Acute (4) Sinus tachycardia Current Visit: Yes Status: Acute (5) Tobacco use Current Visit: Yes Status: Chronic (6) Marijuana use Current Visit: Yes Status: Chronic Subjective Date of service: 05/23/17 Principal diagnosis: Acute HF, Atypical CP Interval history: pt for [facility] today Objective Last Vital Signs Temp 98.3 F 05/23/17 04:50 Pulse 80 05/23/17 04:50 Resp 18 05/23/17 04:50 BP 114/68 05/23/17 04:50 Pulse Ox 100 05/23/17 04:50 - Physical Examination General: No Apparent Distress HEENT: Positive: PERRL, Normocephaly, Mucus Membranes Moist Neck: Positive: neck supple, trachea midline Cardiac: Positive: Reg Rate and Rhythm, S1/S2 Lungs: Positive: clear to auscultation Neuro: Positive: Grossly Intact Abdomen: Positive: Soft, Active Bowel Sounds. Negative: Tender Skin: Positive: Clear. Negative: Rash Musculoskeletal: Normal Range of Motion Extremities: Present: normal. Absent: edema - Labs and Meds Coagulation 05/23/17 Range/Units 05:13 PT 13.6 (12.2-14.9) Sec. INR 0.99 (0.87-1.13) CBC 05/23/17 Range/Units 05:44 WBC 5.9 (4.5-11.0) K/mm3 RBC 5.31 H (3.65-5.03) M/mm3 Hgb 15.3 H (11.8-15.2) gm/dl Hct 46.2 H (35.5-45.6) % Plt Count 144 (140-440) K/mm3 Lymph # 2.2 (1.2-5.4) K/mm3 [place] # 0.5 (0.0-0.8) K/mm3 Eos # 0.1 (0.0-0.4) K/mm3 Baso # 0.0 (0.0-0.1) K/mm3 Comprehensive Metabolic Panel 05/23/17 Range/Units 05:44 Sodium 139 (137-145) mmol/L Potassium 3.9 (3.6-5.0) mmol/L Chloride 101.5 (98-107) mmol/L Carbon Dioxide 27 (22-30) mmol/L BUN 25 H (9-20) mg/dL Creatinine 1.3 (0.8-1.5) mg/dL Glucose 99 (75-100) mg/dL Calcium 8.5 (8.4-10.2) mg/dL - Imaging and Cardiology EKG: image reviewed Echo: pending - EKG Sinus rhythms and dysrhythmias: sinus tachycardia Chamber hypertrophy or enlargement: left ventricular hypertro Repolarization changes or abnormalities: early repolarization due to LVH
[2017-05-23] MEDS ORDERED: K-DUR PO SCH (10:00)
--- NOTE | 2017-05-23 10:01 | Cardiac Catherization Report ---
LEFT HEART CATHETERIZATION CLINICAL INFORMATION: A 37-year-old -[place] gentleman presented with congestive heart failure, was noted to have severe LV dysfunction and scheduled for cardiac catheterization for definitive diagnosis and treatment. The patient denies any previous cardiac history. The patient is aware of the procedure, potential complications and alternatives of therapy available. DESCRIPTION OF PROCEDURE: The patient was brought to the catheterization laboratory in a fasting condition. The right wrist area and forearm thoroughly cleansed with Betadine solution. Sterile drapes were applied. Local anesthesia was achieved using 2% Xylocaine. Right radial arterial puncture was made using 21-gauge arterial puncture needle. Subsequently, a 5-[place] sheath was introduced. The patient received 3000 units of intravenous heparin and 5 mg of intra-arterial verapamil. Using multipurpose catheter, left ventriculogram was performed in [place] projection using hand injection. Subsequently, right coronary angiograms were obtained. A 5-[place] catheter was used to obtain the angiograms of the left coronary artery in multiple views. At the end of the procedure, catheter and sheath were removed. Good hemostasis was achieved with pressure bandage. No untoward complications noted. The patient tolerated the procedure well. Following findings were noted: HEMODYNAMICS: 1. Opening aortic pressure 106/65, left ventricular pressure 107/38. No gradient across the aortic valve. Estimated ejection fraction of 15%. 2. Left ventriculogram done using hand injection showed markedly enlarged left ventricle with swirling of the dye. Severe hypokinesis noted. Ejection fraction was estimated to be about 15%, we would get an echocardiogram for further evaluation. 3. Right coronary artery arises somewhat high anteriorly. However, this is dominant vessel, angiographically smooth and normal. 4. Left coronary artery arises normally from left coronary cusp. Left main, LAD curving around the apex and its branches and circumflex artery and its branch are angiographically smooth and normal. FINAL IMPRESSION: 1. Markedly dilated left ventricle with severe left ventricular dysfunction, ejection fraction around 15%. Mitral regurgitation could not be evaluated because of limited amount of dye injected. 2. Essentially normal coronary anatomy. 3. The patient tolerated the procedure well. The patient appears to have severe dilated cardiomyopathy. We would recommend medical therapy and consideration for implantable cardioverter-defibrillator, consideration for LifeVest. No untoward complications were noted. JOB# [id number] ARISTIDES/NTS
[2017-05-23] MEDS: ALDACTONE PO SCH (10:28)
[2017-05-23] MEDS: ZESTRIL PO SCH (10:29)
[2017-05-23] MEDS: COREG PO SCH ×2 (10:29→21:26)
--- NOTE | 2017-05-23 16:03 | Progress Note ---
Assessment and Plan Assessment and plan: --Nonischemic cardiomyopathy; ejection fraction 10% Heart Normal coronaries, continue current anti-failure medications Patient may need ICD, cardiology recommended LifeVest prior to discharge Follow-up in the office for EP studies and evaluation for ICD --Ongoing tobacco use; smoking cessation counseling done, advised nicotine patch --Recreational drug use with marijuana; counseling done patient strongly advised to quit --Patient also was encouraged to quit alcohol intake, patient verbalized understanding --DVT prophylaxis; Lovenox --DC planning case management; discussed about the patient's need for LifeVest Note resources, case management is helping with the discharge plan Patient's condition and findings of the workup were discussed in detail, risks and consequences of Long-term tobacco alcohol and recreational drug use discussed with him, answered all his questions I also discussed about his cardiomyopathy, need for ICD, further evaluation as outpatient and cardiology Strongly encouraged to be compliment with follow-up visits, medications and diet Patient verbalized understanding Can be transferred out of telemetry with remote telemetry Possible discharge when LifeVest is secured for the patient History Interval history: Patient seen and examined today. Medical records reviewed Underwent heart cath, normal coronaries, left ventricle ejection fraction 10% Cardiology recommended LifeVest prior to discharge May need ICD ,evaluation upon discharge Patient denies any chest pain complaints of generalized weakness Alert awake oriented 3 not in acute distress Hospitalist Physical - Constitutional Vitals: Temp Pulse Resp BP Pulse Ox 98 F 80 18 104/62 96 05/23/17 12:22 05/23/17 12:22 05/23/17 12:22 05/23/17 12:22 05/23/17 12:22 General appearance: Present: no acute distress, well-nourished - EENT Eyes: Present: PERRL, EOM intact - Neck Neck: Present: supple, normal ROM - Respiratory Respiratory effort: normal Respiratory: bilateral: diminished, negative: rales, rhonchi, wheezing - Cardiovascular Rhythm: regular Heart Sounds: Present: S1 & S2 - Extremities Extremities: no ischemia, No edema - Abdominal General gastrointestinal: soft, non-tender, non-distended, normal bowel sounds - Integumentary Integumentary: Present: clear, warm - Psychiatric Psychiatric: appropriate mood/affect, cooperative - Neurologic Neurologic: CNII-XII intact, moves all extremities Results - Labs CBC & Chem 7: 05/23/17 05:44 05/23/17 05:44 Labs: Laboratory Last Values WBC 5.9 K/mm3 (4.5-11.0) 05/23/17 05:44 RBC 5.31 M/mm3 (3.65-5.03) H 05/23/17 05:44 Hgb 15.3 gm/dl (11.8-15.2) H 05/23/17 05:44 Hct 46.2 % (35.5-45.6) H 05/23/17 05:44 MCV 87 fl (84-94) 05/23/17 05:44 MCH 29 pg (28-32) 05/23/17 05:44 MCHC 33 % (32-34) 05/23/17 05:44 RDW 13.5 % (13.2-15.2) 05/23/17 05:44 Plt Count 144 K/mm3 (140-440) 05/23/17 05:44 Lymph % (Auto) 38.2 % (13.4-35.0) H 05/23/17 05:44 [place] % (Auto) 9.3 % (0.0-7.3) H 05/23/17 05:44 Eos % (Auto) 2.3 % (0.0-4.3) 05/23/17 05:44 Baso % (Auto) 0.6 % (0.0-1.8) 05/23/17 05:44 Lymph # 2.2 K/mm3 (1.2-5.4) 05/23/17 05:44 [place] # 0.5 K/mm3 (0.0-0.8) 05/23/17 05:44 Eos # 0.1 K/mm3 (0.0-0.4) 05/23/17 05:44 Baso # 0.0 K/mm3 (0.0-0.1) 05/23/17 05:44 Seg Neutrophils % 49.6 % (40.0-70.0) 05/23/17 05:44 Seg Neutrophils # 2.9 K/mm3 (1.8-7.7) 05/23/17 05:44 PT 13.6 Sec. (12.2-14.9) 05/23/17 05:13 INR 0.99 (0.87-1.13) 05/23/17 05:13 Sodium 139 mmol/L (137-145) 05/23/17 05:44 Potassium 3.9 mmol/L (3.6-5.0) 05/23/17 05:44 Chloride 101.5 mmol/L (98-107) 05/23/17 05:44 Carbon Dioxide 27 mmol/L (22-30) 05/23/17 05:44 Anion Gap 14 mmol/L 05/23/17 05:44 BUN 25 mg/dL (9-20) H 05/23/17 05:44 Creatinine 1.3 mg/dL (0.8-1.5) 05/23/17 05:44 Estimated GFR > 60 ml/min 05/23/17 05:44 BUN/Creatinine Ratio 19 % 05/23/17 05:44 Glucose 99 mg/dL (75-100) 05/23/17 05:44 Calcium 8.5 mg/dL (8.4-10.2) 05/23/17 05:44 Total Bilirubin 0.30 mg/dL (0.1-1.2) 05/20/17 08:51 Direct Bilirubin < 0.2 mg/dL (0-0.2) 05/20/17 08:51 Indirect Bilirubin 0.1 mg/dL 05/20/17 08:51 AST 29 units/L (5-40) 05/20/17 08:51 ALT 26 units/L (7-56) 05/20/17 08:51 Alkaline Phosphatase 51 units/L (35-129) 05/20/17 08:51 Total Creatine Kinase 553 units/L (55-170) H 05/20/17 08:51 CK-MB (CK-2) 6.8 ng/mL (0.0-4.0) H 05/20/17 08:51 CK-MB (CK-2) Rel Index 1.2 (0-4) 05/20/17 08:51 Troponin T 0.012 ng/mL (0.00-0.029) 05/20/17 08:51 NT-Pro-B Natriuret Pep 7505 pg/mL (0-450) H 05/20/17 08:51 Total Protein 7.0 g/dL (6.3-8.2) 05/20/17 08:51 Albumin 3.7 g/dL (3.9-5) L 05/20/17 08:51 Albumin/Globulin Ratio 1.1 % 05/20/17 08:51 Lipase 33 units/L (13-60) 05/20/17 08:51 Urine Opiates Screen Presumptive negative 05/20/17 21:01 Urine Methadone Screen Presumptive negative 05/20/17 21:01 Ur Barbiturates Screen Presumptive negative 05/20/17 21:01 Ur Phencyclidine Scrn Presumptive negative 05/20/17 21:01 Ur Amphetamines Screen Presumptive negative 05/20/17 21:01 U Benzodiazepines Scrn Presumptive negative 05/20/17 21:01 Urine Cocaine Screen Presumptive negative 05/20/17 21:01 U Marijuana (THC) Screen Presumptive positive 05/20/17 21:01 Drugs of Abuse Note Disclamer 05/20/17 21:01
[2017-05-24 06:32] LABS: Anion Gap 18 mmol/L; BUN/Creatinine Ratio 18; Blood Urea Nitrogen 20 mg/dL (9-20); Calcium 8.4 mg/dL (8.4-10.2); Carbon Dioxide 27 mmol/L (22-30); Chloride 102.3 mmol/L (98-107); Creatine Kinase 171 units/L (55-170); Glucose 91 mg/dL (75-100); Potassium 4.3 mmol/L (3.6-5.0); Sodium 143 mmol/L (137-145)
--- NOTE | 2017-05-24 08:54 | Progress Note ---
Assessment and Plan Assessment and plan: --Nonischemic cardiomyopathy; ejection fraction 10% Heart Normal coronaries, continue current anti-failure medications Patient may need ICD, cardiology recommended LifeVest prior to discharge Follow-up in the office for EP studies and evaluation for ICD --Ongoing tobacco use; smoking cessation counseling done, advised nicotine patch --Recreational drug use with marijuana; counseling done patient strongly advised to quit --Patient also was encouraged to quit alcohol intake, patient verbalized understanding --DVT prophylaxis; Lovenox --DC planning case management; discussed about the patient's need for LifeVest Note resources, case management is helping with the discharge plan Patient's condition and findings of the workup were discussed in detail, risks and consequences of Long-term tobacco alcohol and recreational drug use discussed with him, answered all his questions I also discussed about his cardiomyopathy, need for ICD, further evaluation as outpatient by cardiology Strongly encouraged to be compliment with follow-up visits, medications and diet Patient verbalized understanding manager gift assisting in securing LifeVest prior to discharge History Interval history: Sincerely and evaluation this morning medical records reviewed Patient feels better denies chest pain or shortness of breath Awaiting the LifeVest prior to discharge Hospitalist Physical - Constitutional Vitals: Temp Pulse Resp BP Pulse Ox 97.8 F 72 20 116/77 96 05/24/17 04:58 05/24/17 04:58 05/24/17 04:58 05/24/17 04:58 05/24/17 04:58 General appearance: Present: no acute distress, well-nourished - EENT Eyes: Present: PERRL, EOM intact - Neck Neck: Present: supple, normal ROM - Respiratory Respiratory effort: normal Respiratory: bilateral: diminished, negative: rales, rhonchi, wheezing - Cardiovascular Rhythm: regular Heart Sounds: Present: S1 & S2 - Extremities Extremities: no ischemia, No edema - Abdominal General gastrointestinal: soft, non-tender, non-distended, normal bowel sounds - Integumentary Integumentary: Present: clear, warm - Psychiatric Psychiatric: appropriate mood/affect, cooperative - Neurologic Neurologic: CNII-XII intact, moves all extremities Results - Labs CBC & Chem 7: 05/23/17 05:44 05/24/17 04:55 Labs: Laboratory Last Values WBC 5.9 K/mm3 (4.5-11.0) 05/23/17 05:44 RBC 5.31 M/mm3 (3.65-5.03) H 05/23/17 05:44 Hgb 15.3 gm/dl (11.8-15.2) H 05/23/17 05:44 Hct 46.2 % (35.5-45.6) H 05/23/17 05:44 MCV 87 fl (84-94) 05/23/17 05:44 MCH 29 pg (28-32) 05/23/17 05:44 MCHC 33 % (32-34) 05/23/17 05:44 RDW 13.5 % (13.2-15.2) 05/23/17 05:44 Plt Count 144 K/mm3 (140-440) 05/23/17 05:44 Lymph % (Auto) 38.2 % (13.4-35.0) H 05/23/17 05:44 [place] % (Auto) 9.3 % (0.0-7.3) H 05/23/17 05:44 Eos % (Auto) 2.3 % (0.0-4.3) 05/23/17 05:44 Baso % (Auto) 0.6 % (0.0-1.8) 05/23/17 05:44 Lymph # 2.2 K/mm3 (1.2-5.4) 05/23/17 05:44 [place] # 0.5 K/mm3 (0.0-0.8) 05/23/17 05:44 Eos # 0.1 K/mm3 (0.0-0.4) 05/23/17 05:44 Baso # 0.0 K/mm3 (0.0-0.1) 05/23/17 05:44 Seg Neutrophils % 49.6 % (40.0-70.0) 05/23/17 05:44 Seg Neutrophils # 2.9 K/mm3 (1.8-7.7) 05/23/17 05:44 PT 13.6 Sec. (12.2-14.9) 05/23/17 05:13 INR 0.99 (0.87-1.13) 05/23/17 05:13 Sodium 143 mmol/L (137-145) 05/24/17 04:55 Potassium 4.3 mmol/L (3.6-5.0) 05/24/17 04:55 Chloride 102.3 mmol/L (98-107) 05/24/17 04:55 Carbon Dioxide 27 mmol/L (22-30) 05/24/17 04:55 Anion Gap 18 mmol/L 05/24/17 04:55 BUN 20 mg/dL (9-20) 05/24/17 04:55 Creatinine 1.1 mg/dL (0.8-1.5) 05/24/17 04:55 Estimated GFR > 60 ml/min 05/24/17 04:55 BUN/Creatinine Ratio 18 % 05/24/17 04:55 Glucose 91 mg/dL (75-100) 05/24/17 04:55 POC Glucose 101 (70-105) 05/23/17 06:38 Calcium 8.4 mg/dL (8.4-10.2) 05/24/17 04:55 Total Bilirubin 0.30 mg/dL (0.1-1.2) 05/20/17 08:51 Direct Bilirubin < 0.2 mg/dL (0-0.2) 05/20/17 08:51 Indirect Bilirubin 0.1 mg/dL 05/20/17 08:51 AST 29 units/L (5-40) 05/20/17 08:51 ALT 26 units/L (7-56) 05/20/17 08:51 Alkaline Phosphatase 51 units/L (35-129) 05/20/17 08:51 Total Creatine Kinase 171 units/L (55-170) H 05/24/17 04:55 CK-MB (CK-2) 6.8 ng/mL (0.0-4.0) H 05/20/17 08:51 CK-MB (CK-2) Rel Index 1.2 (0-4) 05/20/17 08:51 Troponin T 0.012 ng/mL (0.00-0.029) 05/20/17 08:51 NT-Pro-B Natriuret Pep 7505 pg/mL (0-450) H 05/20/17 08:51 Total Protein 7.0 g/dL (6.3-8.2) 05/20/17 08:51 Albumin 3.7 g/dL (3.9-5) L 05/20/17 08:51 Albumin/Globulin Ratio 1.1 % 05/20/17 08:51 Lipase 33 units/L (13-60) 05/20/17 08:51 Urine Opiates Screen Presumptive negative 05/20/17 21:01 Urine Methadone Screen Presumptive negative 05/20/17 21:01 Ur Barbiturates Screen Presumptive negative 05/20/17 21:01 Ur Phencyclidine Scrn Presumptive negative 05/20/17 21:01 Ur Amphetamines Screen Presumptive negative 05/20/17 21:01 U Benzodiazepines Scrn Presumptive negative 05/20/17 21:01 Urine Cocaine Screen Presumptive negative 05/20/17 21:01 U Marijuana (THC) Screen Presumptive positive 05/20/17 21:01 Drugs of Abuse Note Disclamer 05/20/17 21:01
[2017-05-24] MEDS: LASIX PO SCH (10:44)
[2017-05-24] MEDS: COREG PO SCH ×2 (10:44→21:27)
--- NOTE | 2017-05-24 10:49 | Progress Note ---
Assessment and Plan Cont present cardiac regimen. Await LifeVest placement. The patient has been seen in conjunction with Dr. Newby who agrees with the assessment and plan of care. - Patient Problems (1) Acute combined systolic and diastolic heart failure Current Visit: Yes Status: Acute (2) Nonischemic dilated cardiomyopathy Current Visit: Yes Status: Acute (3) Chest pain, atypical Current Visit: Yes Status: Acute (4) Sinus tachycardia Current Visit: Yes Status: Acute (5) Tobacco use Current Visit: Yes Status: Chronic (6) Marijuana use Current Visit: Yes Status: Chronic (7) NSVT (nonsustained ventricular tachycardia) Current Visit: Yes Status: Acute Subjective Date of service: 05/24/17 Principal diagnosis: Acute HF, Atypical CP Interval history: pt with no current cardiac complaints. Awaiting LifeVest placement. NSVT noted on telemetry overnight. Objective Last Vital Signs Temp 98.5 F 05/24/17 08:02 Pulse 88 05/24/17 10:44 Resp 18 05/24/17 08:02 BP 122/69 05/24/17 10:44 Pulse Ox 100 05/24/17 08:02 - Physical Examination General: No Apparent Distress HEENT: Positive: PERRL, Normocephaly, Mucus Membranes Moist Neck: Positive: neck supple, trachea midline Cardiac: Positive: Reg Rate and Rhythm, S1/S2 Lungs: Positive: Normal Exam, clear to auscultation Neuro: Positive: Grossly Intact Abdomen: Positive: Soft, Active Bowel Sounds. Negative: Tender Skin: Positive: Clear. Negative: Rash Musculoskeletal: Normal Range of Motion Extremities: Present: normal. Absent: edema - Labs and Meds Comprehensive Metabolic Panel 05/24/17 Range/Units 04:55 Sodium 143 (137-145) mmol/L Potassium 4.3 (3.6-5.0) mmol/L Chloride 102.3 (98-107) mmol/L Carbon Dioxide 27 (22-30) mmol/L BUN 20 (9-20) mg/dL Creatinine 1.1 (0.8-1.5) mg/dL Glucose 91 (75-100) mg/dL Calcium 8.4 (8.4-10.2) mg/dL - Imaging and Cardiology EKG: image reviewed Echo: report reviewed (EF 10%, trace MR, LV severely dilated, imipaired relaxation, "smoke" in LV. ) Cardiac cath: report reviewed (EF 15%, normal coronary anatomy ) - Telemetry EKG Rhythm: Sinus Rhythm - EKG Sinus rhythms and dysrhythmias: sinus tachycardia Chamber hypertrophy or enlargement: left ventricular hypertro Repolarization changes or abnormalities: early repolarization due to LVH
[2017-05-24] MEDS: ZESTRIL PO SCH (18:18)
--- NOTE | 2017-05-25 08:36 | Progress Note ---
Assessment and Plan Assessment and plan: --Nonischemic cardiomyopathy; ejection fraction 10% Heart Normal coronaries, continue current anti-failure medications Patient may need ICD, cardiology recommended LifeVest prior to discharge Follow-up in the office for EP studies and evaluation for ICD --Ongoing tobacco use; smoking cessation counseling done, advised nicotine patch --Recreational drug use with marijuana; counseling done patient strongly advised to quit --Patient also was encouraged to quit alcohol intake, patient verbalized understanding --DVT prophylaxis; Lovenox --DC planning case management; discussed about the patient's need for LifeVest Note resources, case management is helping with the discharge plan Patient's condition and findings of the workup were discussed in detail, risks and consequences of Long-term tobacco alcohol and recreational drug use discussed with him, answered all his questions I also discussed about his cardiomyopathy, need for ICD, further evaluation as outpatient by cardiology Strongly encouraged to be compliment with follow-up visits, medications and diet Patient verbalized understanding franchise development manager assisting in securing LifeVest prior to discharge History Interval history: Patient seen and examined medical records reviewed No new events Awaiting for LifeVest prior to discharge Denies shortness of breath or chest pain Vital signs reviewed Hospitalist Physical - Constitutional Vitals: Temp Pulse Resp BP Pulse Ox 98.4 F 77 17 112/58 99 05/25/17 05:07 05/25/17 05:07 05/25/17 05:07 05/25/17 05:07 05/25/17 05:07 General appearance: Present: no acute distress, well-nourished - EENT Eyes: Present: PERRL, EOM intact - Neck Neck: Present: supple, normal ROM - Respiratory Respiratory effort: normal Respiratory: bilateral: diminished, rales, negative: rhonchi, wheezing - Cardiovascular Rhythm: regular Heart Sounds: Present: S1 & S2 - Extremities Extremities: no ischemia, No edema - Abdominal General gastrointestinal: soft, non-tender, non-distended, normal bowel sounds - Integumentary Integumentary: Present: clear, warm - Psychiatric Psychiatric: appropriate mood/affect, cooperative - Neurologic Neurologic: CNII-XII intact, moves all extremities Results - Labs CBC & Chem 7: 05/23/17 05:44 05/24/17 04:55 Labs: Laboratory Last Values WBC 5.9 K/mm3 (4.5-11.0) 05/23/17 05:44 RBC 5.31 M/mm3 (3.65-5.03) H 05/23/17 05:44 Hgb 15.3 gm/dl (11.8-15.2) H 05/23/17 05:44 Hct 46.2 % (35.5-45.6) H 05/23/17 05:44 MCV 87 fl (84-94) 05/23/17 05:44 MCH 29 pg (28-32) 05/23/17 05:44 MCHC 33 % (32-34) 05/23/17 05:44 RDW 13.5 % (13.2-15.2) 05/23/17 05:44 Plt Count 144 K/mm3 (140-440) 05/23/17 05:44 Lymph % (Auto) 38.2 % (13.4-35.0) H 05/23/17 05:44 [place] % (Auto) 9.3 % (0.0-7.3) H 05/23/17 05:44 Eos % (Auto) 2.3 % (0.0-4.3) 05/23/17 05:44 Baso % (Auto) 0.6 % (0.0-1.8) 05/23/17 05:44 Lymph # 2.2 K/mm3 (1.2-5.4) 05/23/17 05:44 [place] # 0.5 K/mm3 (0.0-0.8) 05/23/17 05:44 Eos # 0.1 K/mm3 (0.0-0.4) 05/23/17 05:44 Baso # 0.0 K/mm3 (0.0-0.1) 05/23/17 05:44 Seg Neutrophils % 49.6 % (40.0-70.0) 05/23/17 05:44 Seg Neutrophils # 2.9 K/mm3 (1.8-7.7) 05/23/17 05:44 PT 13.6 Sec. (12.2-14.9) 05/23/17 05:13 INR 0.99 (0.87-1.13) 05/23/17 05:13 Sodium 143 mmol/L (137-145) 05/24/17 04:55 Potassium 4.3 mmol/L (3.6-5.0) 05/24/17 04:55 Chloride 102.3 mmol/L (98-107) 05/24/17 04:55 Carbon Dioxide 27 mmol/L (22-30) 05/24/17 04:55 Anion Gap 18 mmol/L 05/24/17 04:55 BUN 20 mg/dL (9-20) 05/24/17 04:55 Creatinine 1.1 mg/dL (0.8-1.5) 05/24/17 04:55 Estimated GFR > 60 ml/min 05/24/17 04:55 BUN/Creatinine Ratio 18 % 05/24/17 04:55 Glucose 91 mg/dL (75-100) 05/24/17 04:55 POC Glucose 101 (70-105) 05/23/17 06:38 Calcium 8.4 mg/dL (8.4-10.2) 05/24/17 04:55 Total Bilirubin 0.30 mg/dL (0.1-1.2) 05/20/17 08:51 Direct Bilirubin < 0.2 mg/dL (0-0.2) 05/20/17 08:51 Indirect Bilirubin 0.1 mg/dL 05/20/17 08:51 AST 29 units/L (5-40) 05/20/17 08:51 ALT 26 units/L (7-56) 05/20/17 08:51 Alkaline Phosphatase 51 units/L (35-129) 05/20/17 08:51 Total Creatine Kinase 171 units/L (55-170) H 05/24/17 04:55 CK-MB (CK-2) 6.8 ng/mL (0.0-4.0) H 05/20/17 08:51 CK-MB (CK-2) Rel Index 1.2 (0-4) 05/20/17 08:51 Troponin T 0.012 ng/mL (0.00-0.029) 05/20/17 08:51 NT-Pro-B Natriuret Pep 7505 pg/mL (0-450) H 05/20/17 08:51 Total Protein 7.0 g/dL (6.3-8.2) 05/20/17 08:51 Albumin 3.7 g/dL (3.9-5) L 05/20/17 08:51 Albumin/Globulin Ratio 1.1 % 05/20/17 08:51 Lipase 33 units/L (13-60) 05/20/17 08:51 Urine Opiates Screen Presumptive negative 05/20/17 21:01 Urine Methadone Screen Presumptive negative 05/20/17 21:01 Ur Barbiturates Screen Presumptive negative 05/20/17 21:01 Ur Phencyclidine Scrn Presumptive negative 05/20/17 21:01 Ur Amphetamines Screen Presumptive negative 05/20/17 21:01 U Benzodiazepines Scrn Presumptive negative 05/20/17 21:01 Urine Cocaine Screen Presumptive negative 05/20/17 21:01 U Marijuana (THC) Screen Presumptive positive 05/20/17 21:01 Drugs of Abuse Note Disclamer 05/20/17 21:01
[2017-05-25] MEDS: ALDACTONE PO SCH (09:53)
[2017-05-25] MEDS: COREG PO SCH ×2 (09:55→22:22)
[2017-05-25] MEDS: LASIX PO SCH (09:56)
[2017-05-25] MEDS: ZESTRIL PO SCH (09:57)
--- NOTE | 2017-05-25 11:10 | Progress Note ---
Assessment and Plan Cont present cardiac regimen, including coreg, lasix, lisinopril and aldactone. Await LifeVest placement. Currently stable cardiac status. Pending LifeVest placement, pt may discharge home from cardiology standpoint. Follow up in our [place] office with Dr. Pierre on 05/27/2017 @ 2:45PM. The patient has been seen in conjunction with Dr. Newby who agrees with the assessment and plan of care. - Patient Problems (1) Acute combined systolic and diastolic heart failure Current Visit: Yes Status: Acute (2) Nonischemic dilated cardiomyopathy Current Visit: Yes Status: Acute (3) Chest pain, atypical Current Visit: Yes Status: Acute (4) Sinus tachycardia Current Visit: Yes Status: Acute (5) Tobacco use Current Visit: Yes Status: Chronic (6) Marijuana use Current Visit: Yes Status: Chronic (7) NSVT (nonsustained ventricular tachycardia) Current Visit: Yes Status: Acute Subjective Date of service: 05/25/17 Principal diagnosis: Acute HF, Atypical CP Interval history: pt with no current cardiac complaints. Awaiting LifeVest placement. no additional NSVT noted overnight on tele. Objective Last Vital Signs Temp 99.0 F 05/25/17 09:10 Pulse 88 05/25/17 09:57 Resp 18 05/25/17 09:10 BP 108/71 05/25/17 09:57 Pulse Ox 97 05/25/17 09:10 - Physical Examination General: No Apparent Distress HEENT: Positive: PERRL, Normocephaly, Mucus Membranes Moist Neck: Positive: neck supple, trachea midline Cardiac: Positive: Reg Rate and Rhythm, S1/S2 Lungs: Positive: clear to auscultation Neuro: Positive: Grossly Intact Abdomen: Positive: Soft, Active Bowel Sounds. Negative: Tender Skin: Positive: Clear. Negative: Rash Musculoskeletal: Normal Range of Motion Extremities: Present: normal. Absent: edema - Imaging and Cardiology EKG: image reviewed Echo: report reviewed (EF 10%, trace MR, LV severely dilated, imipaired relaxation, "smoke" in LV. ) Cardiac cath: report reviewed (EF 15%, normal coronary anatomy ) - EKG Sinus rhythms and dysrhythmias: sinus tachycardia Chamber hypertrophy or enlargement: left ventricular hypertro Repolarization changes or abnormalities: early repolarization due to LVH
--- NOTE | 2017-05-25 16:54 | Discharge Summary ---
Providers - Providers Date of Admission: 05/20/17 14:55 Date of discharge: 05/25/17 Attending physician: NEFTALI MAYEN 05/20/17 12:40 Consult to Physician [CONS] Urgent Consulting Provider: LIA SIERRA Reason For Exam: new onset CHF Notified:: y 05/23/17 09:23 Consult to Cardiac Rehabilitation [CONS] Routine Reason For Exam: Cardiac Rehab Evaluation Primary care physician: [facility] Hospitalization Reason for admission: Shortness of breath Condition: Stable Pertinent studies: Chest x-ray; mild congestive heart failure CTA chest; no evidence of PE, CHF Exercise stress test; Echocardiogram; Left heart catheterization Hospital course: Patient was admitted with shortness of breath,symptoms consistant with CHF. symptomaticalyy managed,seen by manager of global ,underwent extensive evaluation noted to have severe non ischemic cardiomyopathy, cardiology recommended life vest prior to d/c and outpatient EP studies and evaluation for ICD placement. Case management arranged Life Vest prior to discharge Discharge diagnosis: --Nonischemic cardiomyopathy; ejection fraction 10% Heart cath Normal coronaries, on anti-failure medications LifeVest prior to discharge, Follow-up in the office for EP studies and evaluation for ICD --Ongoing tobacco use; smoking cessation counseling done, advised nicotine patch --Recreational drug use with marijuana; counseling done patient strongly advised to quit --Patient also reports alcohol use , encouraged to quit alcohol intake, Patient's condition and findings of the workup were discussed in detail, risks and consequences of Long-term tobacco alcohol and recreational drug use discussed with him, answered all his questions I also discussed about his cardiomyopathy, need for ICD, further evaluation by EP studies as outpatient by cardiology Strongly encouraged to be compliant with follow-up visits, medications and diet Patient verbalized understanding Disposition: DC-01 TO HOME OR SELFCARE Time spent for discharge: 32 min Core Measure Documentation - Palliative Care Palliative Care/ Comfort Measures: Not Applicable - Core Measures Any of the following diagnoses?: heart failure - Heart Failure Discharge Requirements MIHAELA/ARB for LVSD if EF <40%: Yes Beta jhonatan at discharge: Yes Exam - Constitutional Vitals: Temp Pulse Resp BP Pulse Ox 99.0 F 88 18 108/71 97 05/25/17 09:10 05/25/17 09:57 05/25/17 09:10 05/25/17 09:57 12/13/17 09:10 General appearance: Present: no acute distress, well-nourished - EENT Eyes: Present: PERRL, EOM intact - Neck Neck: Present: supple, normal ROM - Respiratory Respiratory effort: normal Respiratory: negative: rales, rhonchi, wheezing - Cardiovascular Rhythm: regular Heart Sounds: Present: S1 & S2 - Extremities Extremities: no ischemia, No edema - Abdominal General gastrointestinal: Present: soft, non-tender, non-distended, normal bowel sounds - Integumentary Integumentary: Present: clear, warm - Musculoskeletal Musculoskeletal: strength equal bilaterally - Psychiatric Psychiatric: appropriate mood/affect, cooperative - Neurologic Neurologic: CNII-XII intact, moves all extremities Plan Activity: no restrictions Diet: low salt Special Instructions: restrict fluid intake to (< 1200 ml/24 hrs) Additional Instructions: Follow up [facility] at [place] office with Dr. Dey on 05/27/2017 @ 2:45PM. Follow up with: ODELL DEY MD [Staff Physician] - 05/27/17 2:45 pm PRIMARY CAREMD [Primary Care Provider] - 7 Days Prescriptions: Benzonatate [Tessalon Perles] 100 mg PO TID PRN #15 capsule PRN Reason: Cough Carvedilol [Coreg] 3.125 mg PO BID #60 tablet Furosemide [Lasix TAB] 40 mg PO QDAY #30 tablet Lisinopril [Zestril TAB] 2.5 mg PO QDAY #30 tablet Nicotine [Nicotine Patch] 1 each TD DAILY #30 patch.[id number] Spironolactone [Aldactone] 12.5 mg PO QDAY #30 tablet
[2017-05-26] MEDS: ZESTRIL PO SCH (11:21)
[2017-05-26] MEDS: LASIX PO SCH (11:22)
[2017-05-26] MEDS: ALDACTONE PO SCH (11:22)
[2017-05-26] MEDS: COREG PO SCH (11:22)
[2017-05-26 13:12] VITALS: BP 104/53
[2017-05-26] MEDS ORDERED: TYLENOL PO PRN (13:27)
--- NOTE | 2017-05-26 15:38 | Progress Note ---
Assessment and Plan Assessment and plan: --Nonischemic cardiomyopathy; ejection fraction 10% LHC :Normal coronaries, on Lasix and beta jhonatan,MIHAELA inhibitor's spiranolactone Outpatient Follow-up for EP studies and evaluation for ICD, LifeVest prior to discharge --Ongoing tobacco use; smoking cessation counseling done, advised nicotine patch --Recreational drug use with marijuana; counseling done patient strongly advised to quit --DVT prophylaxis; Lovenox --DC planning case management; discussed about the patient's need for LifeVest I also discussed about his cardiomyopathy, need for ICD, further evaluation as outpatient by cardiology Strongly encouraged to be compliment with follow-up visits, medications and diet Patient verbalized understanding History Interval history: Patient seen and examined Initially planned discharged yesterday, however LifeVest could not be set up Patient feels better no new complaints Vital signs reviewed Hospitalist Physical - Constitutional Vitals: Temp Pulse Resp BP Pulse Ox 99.1 F 91 H 18 104/53 98 05/26/17 13:11 05/26/17 13:11 05/26/17 13:11 05/26/17 13:11 05/26/17 13:11 General appearance: Present: no acute distress, well-nourished - EENT Eyes: Present: PERRL, EOM intact - Neck Neck: Present: supple, normal ROM - Respiratory Respiratory effort: normal Respiratory: bilateral: diminished, negative: rales, rhonchi, wheezing - Cardiovascular Rhythm: regular Heart Sounds: Present: S1 & S2 - Extremities Extremities: no ischemia, No edema Peripheral Pulses: within normal limits - Abdominal General gastrointestinal: soft, non-tender, non-distended, normal bowel sounds - Integumentary Integumentary: Present: clear, warm - Psychiatric Psychiatric: appropriate mood/affect, cooperative - Neurologic Neurologic: CNII-XII intact, moves all extremities Results - Labs CBC & Chem 7: 05/23/17 05:44 05/24/17 04:55 Labs: Laboratory Last Values WBC 5.9 K/mm3 (4.5-11.0) 05/23/17 05:44 RBC 5.31 M/mm3 (3.65-5.03) H 05/23/17 05:44 Hgb 15.3 gm/dl (11.8-15.2) H 05/23/17 05:44 Hct 46.2 % (35.5-45.6) H 05/23/17 05:44 MCV 87 fl (84-94) 05/23/17 05:44 MCH 29 pg (28-32) 05/23/17 05:44 MCHC 33 % (32-34) 05/23/17 05:44 RDW 13.5 % (13.2-15.2) 05/23/17 05:44 Plt Count 144 K/mm3 (140-440) 05/23/17 05:44 Lymph % (Auto) 38.2 % (13.4-35.0) H 05/23/17 05:44 Wells % (Auto) 9.3 % (0.0-7.3) H 05/23/17 05:44 Eos % (Auto) 2.3 % (0.0-4.3) 05/23/17 05:44 Baso % (Auto) 0.6 % (0.0-1.8) 05/23/17 05:44 Lymph # 2.2 K/mm3 (1.2-5.4) 05/23/17 05:44 Wells # 0.5 K/mm3 (0.0-0.8) 05/23/17 05:44 Eos # 0.1 K/mm3 (0.0-0.4) 05/23/17 05:44 Baso # 0.0 K/mm3 (0.0-0.1) 05/23/17 05:44 Seg Neutrophils % 49.6 % (40.0-70.0) 05/23/17 05:44 Seg Neutrophils # 2.9 K/mm3 (1.8-7.7) 05/23/17 05:44 PT 13.6 Sec. (12.2-14.9) 05/23/17 05:13 INR 0.99 (0.87-1.13) 05/23/17 05:13 Sodium 143 mmol/L (137-145) 05/24/17 04:55 Potassium 4.3 mmol/L (3.6-5.0) 05/24/17 04:55 Chloride 102.3 mmol/L (98-107) 05/24/17 04:55 Carbon Dioxide 27 mmol/L (22-30) 05/24/17 04:55 Anion Gap 18 mmol/L 05/24/17 04:55 BUN 20 mg/dL (9-20) 05/24/17 04:55 Creatinine 1.1 mg/dL (0.8-1.5) 05/24/17 04:55 Estimated GFR > 60 ml/min 05/24/17 04:55 BUN/Creatinine Ratio 18 % 05/24/17 04:55 Glucose 91 mg/dL (75-100) 05/24/17 04:55 POC Glucose 101 (70-105) 05/23/17 06:38 Calcium 8.4 mg/dL (8.4-10.2) 05/24/17 04:55 Total Bilirubin 0.30 mg/dL (0.1-1.2) 05/20/17 08:51 Direct Bilirubin < 0.2 mg/dL (0-0.2) 05/20/17 08:51 Indirect Bilirubin 0.1 mg/dL 05/20/17 08:51 AST 29 units/L (5-40) 05/20/17 08:51 ALT 26 units/L (7-56) 05/20/17 08:51 Alkaline Phosphatase 51 units/L (35-129) 05/20/17 08:51 Total Creatine Kinase 171 units/L (55-170) H 05/24/17 04:55 CK-MB (CK-2) 6.8 ng/mL (0.0-4.0) H 05/20/17 08:51 CK-MB (CK-2) Rel Index 1.2 (0-4) 05/20/17 08:51 Troponin T 0.012 ng/mL (0.00-0.029) 05/20/17 08:51 NT-Pro-B Natriuret Pep 7505 pg/mL (0-450) H 05/20/17 08:51 Total Protein 7.0 g/dL (6.3-8.2) 05/20/17 08:51 Albumin 3.7 g/dL (3.9-5) L 05/20/17 08:51 Albumin/Globulin Ratio 1.1 % 05/20/17 08:51 Lipase 33 units/L (13-60) 05/20/17 08:51 Urine Opiates Screen Presumptive negative 05/20/17 21:01 Urine Methadone Screen Presumptive negative 05/20/17 21:01 Ur Barbiturates Screen Presumptive negative 05/20/17 21:01 Ur Phencyclidine Scrn Presumptive negative 05/20/17 21:01 Ur Amphetamines Screen Presumptive negative 05/20/17 21:01 U Benzodiazepines Scrn Presumptive negative 05/20/17 21:01 Urine Cocaine Screen Presumptive negative 05/20/17 21:01 U Marijuana (THC) Screen Presumptive positive 05/20/17 21:01 Drugs of Abuse Note Disclamer 05/20/17 21:01
== END 2017-05-26 16:18 | disposition home or self-care (01) | DRG 286 ==
LOC: ED 08:20 → 4A 14:55
PROVIDERS: ADMIT Internal Medicine; ATTEND Internal Medicine
PROC: 4A023N7 Measurement of Cardiac Sampling and Pressure, Left Heart, Percutaneous Approach (ICD-10-PCS; principal; 2017-05-23)
PROC: B2111ZZ Fluoroscopy of Multiple Coronary Arteries using Low Osmolar Contrast (ICD-10-PCS; 2017-05-23)
PROC: B2151ZZ Fluoroscopy of Left Heart using Low Osmolar Contrast (ICD-10-PCS; 2017-05-23)
DX: I50.43 Acute on chronic combined systolic (congestive) and diastolic (congestive) heart failure (principal); J96.00 Acute respiratory failure, unspecified whether with hypoxia or hypercapnia; I42.0 Dilated cardiomyopathy; I47.2 Ventricular tachycardia; K52.9 Noninfective gastroenteritis and colitis, unspecified; F17.210 Nicotine dependence, cigarettes, uncomplicated; I51.7 Cardiomegaly; R07.89 Other chest pain; F12.10 Cannabis abuse, uncomplicated; Z82.49 Family history of ischemic heart disease and other diseases of the circulatory system
CPT/HCPCS: 36415; 71020; 71275; 78452; 80048; 80074; 80307; 82550; 82553; 82962; 83690; 83880; 84484; 85025; 85610; 87040; 93005; 93010; 93017; 93306; 93458; 96374; 96375; 99406; A9502; C1887; C1894; J1170; J1644; J1940; J2250; J2405; J2785; J3010; J7030; J7040; Q9967

== ENCOUNTER → 2017-06-14 | Emergency (ER) | payer OTHER ==
[2017-06-14 22:24] LABS: Basophils % (Auto) 0.6 % (0.0-1.8); Eosinophils % (Auto) 0.7 % (0.0-4.3); Hematocrit 41.8 % (35.5-45.6); Lymphocytes # (Auto) 2.1 K/mm3 (1.2-5.4); Lymphocytes % (Auto) 34.3 % (13.4-35.0); Mean Corpuscular HGB Conc 33 % (32-34); Mean Corpuscular Hemoglobin 29 pg (28-32); Mean Corpuscular Volume 86 fl (84-94); Monocytes # (Auto) 0.4 K/mm3 (0.0-0.8); Platelet Count 100 K/mm3 (140-440); Red Blood Count 4.87 M/mm3 (3.65-5.03); Red Cell Distribution Width 13.1 % (13.2-15.2)
[2017-06-14 22:42] LABS: BUN/Creatinine Ratio 17; Blood Urea Nitrogen 20 mg/dL (9-20); Calcium 8.9 mg/dL (8.4-10.2); Hemolysis Index 11
--- NOTE | 2017-06-15 09:33 | XRay Report ---
FINAL REPORT PROCEDURE: XR CHEST ROUTINE 2V TECHNIQUE: Frontal and lateral views of the chest are submitted. HISTORY: Shortness of breath COMPARISON: None FINDINGS: Trachea is midline. The heart is enlarged. The lungs are clear. There is no evident pneumothorax or pleural fluid. The thoracic cage is intact. IMPRESSION: Cardiomegaly
--- NOTE | 2017-06-15 11:14 | Emergency Department Report ---
ED Chest Pain HPI - General Chief Complaint: Chest Pain Stated Complaint: CHEST PAIN,SHORT OF BREATH Time Seen by Provider: 06/15/17 11:03 Source: patient Mode of arrival: Ambulatory Limitations: No Limitations - History of Present Illness Initial Comments: This is a 37-year-old -Prydeinig male presents to the emergency department with complaint of a one-day history of some shortness of breath and generalized chest discomfort. He denies any fever, cough, nausea, vomiting or diaphoresis. The patient was here in May and was diagnosed with heart failure and had a cardiac catheterization that showed dilated left ventricle with severe dysfunction and EF of 15%. He is currently wearing a life vest. He is on Coreg, Aldactone, Lasix and Zestril and says he has been taking compliantly. No recent travel or sick contacts at home. He does not have a primary care physician. Severity scale (0 -10): 6 - Related Data Home Medications Medication Instructions Recorded Confirmed Last Taken Lisinopril [Zestril TAB] 1 tab PO DAILY 06/14/17 06/14/17 Unknown Previous Rx's Medication Instructions Recorded Last Taken Type Spironolactone [Aldactone] 12.5 mg PO QDAY #30 tablet 05/25/17 Unknown Rx Carvedilol [Coreg] 6.25 mg PO BID #60 tablet 06/15/17 Unknown Rx Furosemide [Lasix TAB] 40 mg PO BID #60 tablet 06/15/17 Unknown Rx Allergies Allergy/AdvReac Type Severity Reaction Status Date / Time No Known Allergies Allergy Verified 05/17/17 14:23 Heart Score - HEART Score History: Moderately suspicious EKG: Non-specific Age: < 45 Risk factors: 1-2 risk factors Troponin: < normal limit HEART Score: 3 - Critical Actions Critical Actions: 0-3 pts:0.9-1.7%risk of adverse cardiac event.Candidate for discharge ED Review of Systems ROS: Stated complaint: CHEST PAIN,SHORT OF BREATH Other details as noted in HPI Comment: All other systems reviewed and negative Constitutional: denies: chills, fever Eyes: denies: eye pain, eye discharge, vision change ENT: denies: ear pain, throat pain Respiratory: shortness of breath. denies: cough Cardiovascular: chest pain. denies: palpitations, edema Gastrointestinal: denies: abdominal pain, nausea, diarrhea Genitourinary: denies: urgency, dysuria Musculoskeletal: denies: back pain, joint swelling, arthralgia Skin: denies: rash, lesions Neurological: denies: headache, weakness, paresthesias ED Past Medical Hx - Past Medical History Hx Heart Attack/AMI: (Ejection Fraction 10%) Additional medical history: CHF - Surgical History Additional Surgical History: Hernia repair - Social History Smoking Status: Former Smoker Substance Use Type: None - Medications Home Medications: Home Medications Medication Instructions Recorded Confirmed Last Taken Type Spironolactone [Aldactone] 12.5 mg PO QDAY #30 tablet 05/25/17 06/14/17 Unknown Rx Lisinopril [Zestril TAB] 1 tab PO DAILY 06/14/17 06/14/17 Unknown History Carvedilol [Coreg] 6.25 mg PO BID #60 tablet 06/15/17 Unknown Rx Furosemide [Lasix TAB] 40 mg PO BID #60 tablet 06/15/17 Unknown Rx ED Physical Exam - General Limitations: No Limitations - Other Other exam information: GENERAL: The patient is well-developed well-nourished. HENT: Normocephalic. Atraumatic. Patient has moist mucous membranes. EYES: Extraocular motions are intact. Pupils equal reactive to light bilaterally. NECK: Supple. Trachea is midline. CHEST/LUNGS: Clear to auscultation. There is no respiratory distress noted. HEART/CARDIOVASCULAR: Regular. There is no tachycardia. There is no murmur. ABDOMEN: Abdomen is soft, nontender. Patient has normal bowel sounds. There is no abdominal distention. SKIN: Skin is warm and dry. NEURO: The patient is awake, alert, and oriented. The patient is cooperative. The patient has no focal neurologic deficits. The patient has normal speech. MUSCULOSKELETAL: There is no tenderness or deformity. There is no limitation range of motion. There is no evidence of acute injury. ED Course Vital Signs 06/14/17 06/15/17 06/15/17 21:47 05:57 12:42 Temperature 98 F 98.0 F Pulse Rate 103 H 101 H Respiratory 16 18 Rate Blood Pressure 124/86 112/81 O2 Sat by Pulse 100 98 100 Oximetry 06/15/17 06/15/17 06/15/17 12:45 13:00 13:15 Temperature Pulse Rate 99 H 82 90 Respiratory 22 21 25 H Rate Blood Pressure 116/80 117/73 121/81 O2 Sat by Pulse 99 98 Oximetry 06/15/17 06/15/17 06/15/17 13:30 14:11 14:39 Temperature Pulse Rate 85 Respiratory 22 22 Rate Blood Pressure 112/74 112/74 O2 Sat by Pulse 98 91 Oximetry 06/15/17 06/15/17 06/15/17 14:45 15:01 15:15 Temperature Pulse Rate 105 H Respiratory 29 H Rate Blood Pressure 114/82 111/84 117/81 O2 Sat by Pulse 96 87 97 Oximetry 06/15/17 15:31 Temperature Pulse Rate 106 H Respiratory 14 Rate Blood Pressure 114/82 O2 Sat by Pulse 97 Oximetry STEPHANIE score - Stephanie Score Age > 65: (0) No Aspirin use within the Past 7 Days: (0) No 3 or more CAD Risk Factors: (0) No 2 or more Angina events in past 24 hrs: (0) No Known CAD with more than 50% Stenosis: (0) No Elevated Cardiac Markers: (0) No ST Deviation Greater than 0.5mm: (0) No STEPHANIE Score: 0 ED Medical Decision Making - Lab Data Result diagrams: 06/14/17 22:11 06/14/17 22:11 - EKG Data -: EKG Interpreted by Me EKG shows normal: sinus rhythm, axis, intervals, QRS complexes (LVH), ST-T waves Rate: normal - EKG Data When compared to previous EKG there are: previous EKG unavailable Interpretation: LVH - Radiology Data Radiology results: report reviewed, image reviewed interpreted by me: Chest x-ray does not show any pleural effusions, pneumothorax, pneumonia or any other acute process. CT angiography of the chest including 3-D reconstructed images. History: Shortness of breath and elevated d-dimer. Course is made to the previous similar study performed on May 20, 2017. Findings: There is no evidence of pulmonary emboli. The heart is enlarged and there is a right pleural effusion, decreased since the previous study. Interstitium remains prominent. Impression: 1. No evidence of pulmonary emboli. 2. Cardiomegaly with prominent interstitial markings and right pleural effusion as noted on the previous study. Transcribed By: MRP Dictated By: LUIS PERKINS MD Electronically Authenticated By: LUIS PERKINS MD Signed Date/Time: 06/15/17 [id number] - Medical Decision Making Patient came in with complaint of some chest pain and shortness of breath. He had a cardiac cath done last month that did not show any vessel disease but did show heart failure. His BNP was low. Negative troponins 2. He did have an elevated d-dimer and CT angiography was done that did not show any signs of PE or dissection. He was seen by [facility] cardiology in the emergency department who felt that he was safe for discharge home. However they increased his Coreg and Lasix and made an appointment for him for follow-up on . Patient is feeling improved. He understands the plan and agrees. He will return to the ER with any worsening of symptoms or any acute distress. - Differential Diagnosis CHF, KS, PE, pneumonia Critical Care Time: No Critical care attestation.: If time is entered above; I have spent that time in minutes in the direct care of this critically ill patient, excluding procedure time. ED Disposition Clinical Impression: Chest pain, atypical CHF (congestive heart failure) Qualifiers: Congestive heart failure type: unspecified congestive heart failure type Congestive heart failure chronicity: unspecified congestive heart failure chronicity Qualified Code(s): I50.9 - Heart failure, unspecified Disposition: DC-01 TO HOME OR SELFCARE Is pt being admited?: No Condition: Stable Instructions: Heart Failure (ED), Chest Pain (ED) Additional Instructions: Please follow-up with your splitting machine operator helper on 06/21/17 at 3:45 PM as scheduled for you by [facility]. [facility] has also increased your Coreg and Lasix. Return to the emergency Department with any worsening of your symptoms or any acute distress. Prescriptions: Carvedilol [Coreg] 6.25 mg PO BID #60 tablet Furosemide [Lasix TAB] 40 mg PO BID #60 tablet Referrals: ODELL DEY MD [Staff Physician] - 06/21/17 3:45 pm Time of Disposition: 15:37
--- NOTE | 2017-06-15 14:44 | Cat Scan Report ---
CT angiography of the chest including 3-D reconstructed images. History: Shortness of breath and elevated d-dimer. Course is made to the previous similar study performed on May 20, 2017. Findings: There is no evidence of pulmonary emboli. The heart is enlarged and there is a right pleural effusion, decreased since the previous study. Interstitium remains prominent. Impression: 1. No evidence of pulmonary emboli. 2. Cardiomegaly with prominent interstitial markings and right pleural effusion as noted on the previous study.
--- NOTE | 2017-06-15 15:29 | Consultation ---
History of Present Illness Consult date: 06/15/17 Requesting physician: ESTEFANIA BUENO Consult reason: shortness of breath History of present illness: The patient is a 37 year old male who is followed by Dr. Pierre in the office with a history of chronic systolic heart failure, non-ischemic cardiomyopathy (wearing Lifevest) who presented with complaints of worsening shortness of breath, orthopnea and substernal chest discomfort over the past 2 days. He denies any fever, cough, nausea, vomiting or diaphoresis. The patient was here in May and was diagnosed with heart failure and had a cardiac catheterization that showed normal coronaries but dilated left ventricle, EF of 15%. He is currently wearing a life vest. He has been complaint with his medications. Chest CTA negative for PE. Past History Past Medical History: heart failure, other (non-ischemic cardiomyopathy) Past Surgical History: hernia repair Social history: smoking (former smoker). denies: alcohol abuse, prescription drug abuse Family history: no significant family history Medications and Allergies Allergies Allergy/AdvReac Type Severity Reaction Status Date / Time No Known Allergies Allergy Verified 05/17/17 14:23 Home Medications Medication Instructions Recorded Confirmed Last Taken Type Spironolactone [Aldactone] 12.5 mg PO QDAY #30 tablet 05/25/17 06/14/17 Unknown Rx Lisinopril [Zestril TAB] 1 tab PO DAILY 06/14/17 06/14/17 Unknown History Carvedilol [Coreg] 6.25 mg PO BID #60 tablet 06/15/17 Unknown Rx Furosemide [Lasix TAB] 40 mg PO BID #60 tablet 06/15/17 Unknown Rx Review of Systems Constitutional: no fever, no chills Ears, nose, mouth and throat: no nasal congestion, no nasal discharge, no sinus pressure Cardiovascular: chest pain, orthopnea, shortness of breath, dyspnea on exertion , no leg edema Respiratory: shortness of breath, dyspnea on exertion, no cough Gastrointestinal: no abdominal pain, no nausea, no vomiting, no diarrhea Genitourinary Male: no dysuria, no hematuria Musculoskeletal: no neck stiffness, no neck pain, no myalgias Integumentary: no rash, no pruritis Neurological: no parathesias, no numbness, no tingling, no headaches Endocrine: no cold intolerance, no heat intolerance Hematologic/Lymphatic: no easy bruising, no easy bleeding Allergic/Immunologic: no urticaria, no wheezing Physical Examination Vital Signs Temp Pulse Resp BP Pulse Ox 98 F 103 H 16 124/86 100 06/14/17 21:47 06/14/17 21:47 06/14/17 21:47 06/14/17 21:47 06/14/17 21:47 General appearance: no acute distress HEENT: Positive: PERRL, Normocephaly, Mucus Membranes Moist Neck: Positive: neck supple, trachea midline Cardiac: Positive: Reg Rate and Rhythm, S1/S2 Lungs: Positive: clear to auscultation Abdomen: Positive: Soft, Active Bowel Sounds. Negative: Tender Skin: Positive: Clear. Negative: Rash Extremities: Present: normal. Absent: edema Results 06/14/17 22:11 06/14/17 22:11 CBC 06/14/17 Range/Units 22:11 WBC 6.0 (4.5-11.0) K/mm3 RBC 4.87 (3.65-5.03) M/mm3 Hgb 14.0 (11.8-15.2) gm/dl Hct 41.8 (35.5-45.6) % Plt Count 100 L (140-440) K/mm3 Lymph # 2.1 (1.2-5.4) K/mm3 Saunders # 0.4 (0.0-0.8) K/mm3 Eos # 0.0 (0.0-0.4) K/mm3 Baso # 0.0 (0.0-0.1) K/mm3 Comprehensive Metabolic Panel 06/14/17 Range/Units 22:11 Sodium 142 (137-145) mmol/L Potassium 3.9 (3.6-5.0) mmol/L Chloride 102.9 (98-107) mmol/L Carbon Dioxide 25 (22-30) mmol/L BUN 20 (9-20) mg/dL Creatinine 1.2 (0.8-1.5) mg/dL Glucose 108 H (75-100) mg/dL Calcium 8.9 (8.4-10.2) mg/dL - Imaging and Cardiology Echo: report reviewed (05/2017: EF 10%, impaired relaxation) EKG: image reviewed EKG interpretations - Telemetry EKG Rhythm: Sinus Rhythm - EKG Sinus rhythms and dysrhythmias: sinus rhythm Chamber hypertrophy or enlargement: left ventricular hypertro Assessment and Plan Assessment: Atypical chest pain Chronic systolic heart failure Non-ischemic cardiomyopathy-->normal coronaries per cath 05/2017 Plan: Chest CTA is negative for PE and patient does not clinically appear to be in overt heart failure at this time. Okay to d/c home from a cardiac standpoint. Will have patient increase his lasix to 40mg BID and his coreg to 6.25mg BID and follow up with Dr. Pierre in the [place] office on 06/21/17 at 3:45 pm. The patient has been seen in conjunction with Dr. Viramontes who agrees with the assessment and plan of care.
[2017-06-15 15:46] VITALS: BP 114/82
== END | disposition home or self-care (01) ==
LOC: ED 21:34
DX: R07.89 Other chest pain (principal); I50.9 Heart failure, unspecified; Z87.891 Personal history of nicotine dependence
CPT/HCPCS: 36415; 71046; 80048; 83880; 84484; 85025; 85379; 93005; 93010

== ENCOUNTER 2017-06-22 21:09 | Emergency (ER) | payer SELFPAY ==
[2017-06-22] MEDS ORDERED: ASPIRIN PO ONE (21:26)
--- NOTE | 2017-06-22 21:53 | Emergency Department Report ---
ED Neuro Deficit HPI - General Chief Complaint: Weakness Stated Complaint: BODY NUMBNESS Time Seen by Provider: 06/22/17 21:43 Source: family, EMS Mode of arrival: Stretcher Limitations: No Limitations - History of Present Illness Initial Comments: 37 yo male who comes in today due to neuro symptoms. Per the , the patient' s symptoms started 15 minutes prior to arrival. On exam, the patient does have a left-sided deficit (left upper extremity, left facial droop, left lower extremity) on exam. The and the patient states that this have never happened. History of congestive heart failure. Patient is wearing a portable defibrillator. -: minutes(s) (15 minutes prior to arrival) Location: left face, left arm, left leg Presenting Symptoms: Present: Weak/Paralyzed One Side (left ), Facial Droop/ Numbness (left ) History of same: No Place: home Severity: moderate Quality: weak Improves With: none Worsens With: none On Anticoagulants: No Context: other (started at home prior to arrival 15 minutes ago ) Associated Symptoms: denies other symptoms Treatments Prior to Arrival: none - Related Data Home Medications: Home Medications Medication Instructions Recorded Confirmed Last Taken Lisinopril [Zestril TAB] 1 tab PO DAILY 06/14/17 06/14/17 Unknown Previous Rx's Medication Instructions Recorded Last Taken Type Spironolactone [Aldactone] 12.5 mg PO QDAY #30 tablet 05/25/17 Unknown Rx Carvedilol [Coreg] 6.25 mg PO BID #60 tablet 06/15/17 Unknown Rx Furosemide [Lasix TAB] 40 mg PO BID #60 tablet 06/15/17 Unknown Rx Allergies/Adverse Reactions: Allergies Allergy/AdvReac Type Severity Reaction Status Date / Time No Known Allergies Allergy Verified 05/17/17 14:23 ED Review of Systems ROS: Stated complaint: BODY NUMBNESS Other details as noted in HPI Constitutional: weakness Eyes: denies: eye pain, eye discharge, vision change ENT: denies: ear pain, throat pain Respiratory: denies: cough, shortness of breath, wheezing Cardiovascular: denies: chest pain, palpitations Endocrine: no symptoms reported Gastrointestinal: denies: abdominal pain, nausea, diarrhea Genitourinary: denies: urgency, dysuria Musculoskeletal: denies: back pain, joint swelling, arthralgia Skin: denies: rash, lesions Neurological: as per HPI, weakness Psychiatric: denies: anxiety, depression Hematological/Lymphatic: denies: easy bleeding, easy bruising ED Past Medical Hx - Past Medical History Previous Medical History?: Yes Hx Heart Attack/AMI: (Ejection Fraction 10%) Hx Congestive Heart Failure: Yes Additional medical history: CHF - Surgical History Additional Surgical History: Hernia repair - Social History Smoking Status: Former Smoker Substance Use Type: Marijuana - Medications Home Medications: Home Medications Medication Instructions Recorded Confirmed Last Taken Type Spironolactone [Aldactone] 12.5 mg PO QDAY #30 tablet 05/25/17 06/14/17 Unknown Rx Lisinopril [Zestril TAB] 1 tab PO DAILY 06/14/17 06/14/17 Unknown History Carvedilol [Coreg] 6.25 mg PO BID #60 tablet 06/15/17 Unknown Rx Furosemide [Lasix TAB] 40 mg PO BID #60 tablet 06/15/17 Unknown Rx ED Neuro Physical Exam - General Limitations: No Limitations General appearance: alert, in no apparent distress Suspected Stroke: Yes - Head Head exam: Present: atraumatic, normocephalic - Eye Eye exam: Present: normal appearance - ENT ENT exam: Present: other (left facial droop ) - Neck Neck exam: Present: normal inspection - Respiratory Respiratory exam: Present: normal lung sounds bilaterally. Absent: respiratory distress - Cardiovascular Cardiovascular Exam: Present: regular rate, normal rhythm. Absent: systolic murmur, diastolic murmur, rubs, gallop - Extremities Exam Extremities exam: Present: normal inspection - Back Exam Back exam: Present: normal inspection - Neurological Exam Neurological exam: Present: alert, other (left upper/lower extremity weakness) - NIHSS Assessment Interval: Baseline (baseline never reached-left facial droop, left upper extremity, left lower extremity weakness) 1a. Level of Consciousness: alert 1b. LOC Questions: answers correctly 1c. LOC Commands: performs no tasks correctly 2. Best Gaze: normal 3. Visual: no visual loss 4. Facial Palsy: partial paralysis (left) 5b. Motor Arm Right: no drift 5a. Motor Arm Left: no drift (left upper weakness) 6a. Motor Leg Left: no drift (left lower extremity weakness) 6b. Motor Leg Right: no drift 7. Limb Ataxia: absent 8. Sensory: normal 9. Best Language: no aphasia 10. Dysarthria: normal 11. Extinction/Inattention: no abnormality Total Score: 4 Stroke Severity: Minor Stroke - Psychiatric Psychiatric exam: Present: normal affect - Skin Skin exam: Present: warm, dry, intact, normal color. Absent: rash ED Course Vital Signs 06/22/17 06/22/17 21:21 22:10 Temperature 98.4 F Pulse Rate 95 H Respiratory 16 16 Rate Blood Pressure 114/68 O2 Sat by Pulse 100 99 Oximetry - Reevaluation(s) Reevaluation #1: 06/22/17 22:[address] George and Radiology. They both agreed that there is a dilation of the right middle cerebral artery. The patient has left facial, upper, and lower extremity deficits. Plan to transfer to [place] per Dr. George for an embolectomy. - Lab Data Result diagrams: 06/22/17 22:25 06/22/17 21:30 Lab Results 06/22/17 06/22/17 06/22/17 Range/Units 21:30 21:30 21:30 WBC (4.5-11.0) K/mm3 RBC (3.65-5.03) M/mm3 Hgb (11.8-15.2) gm/dl Hct (35.5-45.6) % MCV (84-94) fl MCH (28-32) pg MCHC (32-34) % RDW (13.2-15.2) % Plt Count (140-440) K/mm3 Lymph % (Auto) (13.4-35.0) % [place] % (Auto) (0.0-7.3) % Eos % (Auto) (0.0-4.3) % Baso % (Auto) (0.0-1.8) % Lymph # (1.2-5.4) K/mm3 [place] # (0.0-0.8) K/mm3 Eos # (0.0-0.4) K/mm3 Baso # (0.0-0.1) K/mm3 Seg Neutrophils % (40.0-70.0) % Seg Neutrophils # (1.8-7.7) K/mm3 PT 13.4 (12.2-14.9) Sec. INR 0.97 (0.87-1.13) APTT 31.6 (24.2-36.6) Sec. Sodium 137 (137-145) mmol/L Potassium 4.7 (3.6-5.0) mmol/L Chloride 99.7 (98-107) mmol/L Carbon Dioxide 23 (22-30) mmol/L Anion Gap 19 mmol/L BUN 18 (9-20) mg/dL Creatinine 1.1 (0.8-1.5) mg/dL Estimated GFR > 60 ml/min BUN/Creatinine Ratio 16 % Glucose 94 (75-100) mg/dL Calcium 9.1 (8.4-10.2) mg/dL Total Bilirubin 0.30 (0.1-1.2) mg/dL AST 17 (5-40) units/L ALT 13 (7-56) units/L Alkaline Phosphatase 54 (35-129) units/L Total Creatine Kinase (55-170) units/L CK-MB (CK-2) (0.0-4.0) ng/mL CK-MB (CK-2) Rel Index (0-4) Troponin T < 0.010 (0.00-0.029) ng/mL Total Protein 6.9 (6.3-8.2) g/dL Albumin 4.0 (3.9-5) g/dL Albumin/Globulin Ratio 1.4 % 06/22/17 06/22/17 06/22/17 Range/Units 21:30 22:25 22:50 WBC 6.2 (4.5-11.0) K/mm3 RBC 5.09 H (3.65-5.03) M/mm3 Hgb 14.1 (11.8-15.2) gm/dl Hct 44.0 (35.5-45.6) % MCV 86 (84-94) fl MCH 28 (28-32) pg MCHC 32 (32-34) % RDW 13.2 (13.2-15.2) % Plt Count 115 L (140-440) K/mm3 Lymph % (Auto) 26.3 (13.4-35.0) % [place] % (Auto) 9.1 H 8.9 H (0.0-7.3) % Eos % (Auto) 0.3 0.3 (0.0-4.3) % Baso % (Auto) 1.2 (0.0-1.8) % Lymph # 1.6 (1.2-5.4) K/mm3 [place] # 0.6 0.5 (0.0-0.8) K/mm3 Eos # 0.0 0.0 (0.0-0.4) K/mm3 Baso # 0.1 0.0 (0.0-0.1) K/mm3 Seg Neutrophils % 63.1 63.4 (40.0-70.0) % Seg Neutrophils # 3.9 3.7 (1.8-7.7) K/mm3 PT (12.2-14.9) Sec. INR (0.87-1.13) APTT (24.2-36.6) Sec. Sodium (137-145) mmol/L Potassium (3.6-5.0) mmol/L Chloride (98-107) mmol/L Carbon Dioxide (22-30) mmol/L Anion Gap mmol/L BUN (9-20) mg/dL Creatinine (0.8-1.5) mg/dL Estimated GFR ml/min BUN/Creatinine Ratio % Glucose (75-100) mg/dL Calcium (8.4-10.2) mg/dL Total Bilirubin (0.1-1.2) mg/dL AST (5-40) units/L ALT (7-56) units/L Alkaline Phosphatase (35-129) units/L Total Creatine Kinase 187 H (55-170) units/L CK-MB (CK-2) 3.2 (0.0-4.0) ng/mL CK-MB (CK-2) Rel Index 1.7 (0-4) Troponin T (0.00-0.029) ng/mL Total Protein (6.3-8.2) g/dL Albumin (3.9-5) g/dL Albumin/Globulin Ratio % - EKG Data -: EKG Interpreted by Sc EKG shows normal: sinus rhythm (unchanged from 06/14/17 ) Rate: normal When compared to previous EKG there are: no significant change (compared to an ekg on 06/14/17) Interpretation: no acute changes - Radiology Data Radiology results: report reviewed (Radiology-revealed a dilation of the right middle cerebral artery ) Radiology and Dr. George revealed a dilation of the right middle cerebral artery. - Medical Decision Making Right CVA - Differential Diagnosis Right CVA - Core Measures AMI Core Measures Followed: No Measure Exclusions: not indicated - Thrombolytic Inclusion/Exclusion Thrombolytic Exclusion Criteria: Onset of Symptoms Unknown Critical care attestation.: If time is entered above; I have spent that time in minutes in the direct care of this critically ill patient, excluding procedure time. ED Disposition Clinical Impression: CVA (cerebral vascular accident), Congestive heart disease Disposition: [id number]/TX-[id number] ANOTHER TYPE HLTHCARE Is pt being admited?: No Does the pt Need Aspirin: Yes Condition: Serious Additional Instructions: Patient to be transferred to [place] [facility] care of Dr. Perez. Referrals: PRIMARY CARE, [Primary Care Provider] - 3-5 Days Time of Disposition: 23:40
[2017-06-22 22:05] LABS: INR 0.97 (0.87-1.13)
[2017-06-22 22:06] LABS: Partial Thromboplastin Time 31.6 Sec. (24.2-36.6)
--- NOTE | 2017-06-22 22:10 | Cat Scan Report ---
FINAL REPORT PROCEDURE: CT HEAD/BRAIN WO CON TECHNIQUE: Computerized tomography of the head was performed without contrast material. HISTORY: cva vs tia COMPARISON: No prior studies are available for comparison. FINDINGS: Brain: Brain density appears normal. No evidence of intracranial hemorrhage. No parenchymal hemorrhage, mass lesions or mass effect are seen. No abnormal extraxial fluid collects or masses are seen. There is asymmetric increased density in the right middle cerebral artery. This is nonspecific. I cannot exclude slow flow or thrombosis. Ventricles: Ventricles are normal size and are midline. Bone Windows: No evidence of skull fracture. Paranasal sinuses: Mucosal thickening and a large amount of fluid visualized in the left maxillary sinus. Mild mucosal thickening and a small amount of fluid seen in the right maxillary sinus suggesting acute sinusitis in these areas. There is mild mucosal thickening in the sphenoid sinuses bilaterally. Mastoid air cells: Clear IMPRESSION: CT of the brain shows no focal abnormality. The density of the middle cerebral arteries however appears asymmetric, the right more dense than the left. I cannot exclude slow flow or thrombosis. If clinically indicated MRI and MRA of the brain could be obtained for further evaluation. Paranasal sinus disease as described. Acute sinusitis suspected in the maxillary sinuses bilaterally.
[2017-06-22 22:19] LABS: Hemoglobin 14.1 gm/dl (11.8-15.2); Mean Corpuscular HGB Conc 32 % (32-34); Mean Corpuscular Hemoglobin 28 pg (28-32); Mean Corpuscular Volume 86 fl (84-94); Platelet Count 115 K/mm3 (140-440); Red Blood Count 5.09 M/mm3 (3.65-5.03); Red Cell Distribution Width 13.2 % (13.2-15.2)
[2017-06-22 22:26] LABS: Creatine Kinase MB 3.2 ng/mL (0.0-4.0)
[2017-06-22 22:29] LABS: Alanine Aminotransferase 13 units/L (7-56); BUN/Creatinine Ratio 16; Blood Urea Nitrogen 18 mg/dL (9-20); Calcium 9.1 mg/dL (8.4-10.2); Hemolysis Index 19
[2017-06-22 22:43] LABS: Basophils % (Auto) 1.2 % (0.0-1.8); Eosinophils % (Auto) 0.3 % (0.0-4.3); Lymphocytes # (Auto) 1.6 K/mm3 (1.2-5.4); Lymphocytes % (Auto) 26.3 % (13.4-35.0); Monocytes % (Auto) 9.1 % (0.0-7.3)
[2017-06-22 22:44] LABS: Basophils # (Auto) 0.1 K/mm3 (0.0-0.1); Monocytes # (Auto) 0.6 K/mm3 (0.0-0.8)
--- NOTE | 2017-06-22 22:58 | XRay Report ---
FINAL REPORT PROCEDURE: XR CHEST 1V AP TECHNIQUE: Chest radiograph anteroposterior view. CPT 24097 HISTORY: chest pain COMPARISON: Prior chest x-ray 06/14/2017 FINDINGS: Heart: Diffusely enlarged. Pericardial effusion cannot be excluded.. Mediastinum/Vessels: Normal. Lungs/Pleural space: Left diaphragms poorly defined. I cannot exclude a left pleural effusion, infiltrate or atelectasis in the left lower lobe.. Bony thorax: No acute osseous abnormality. Life support devices: None. IMPRESSION: There is marked cardiomegaly. Pericardial effusion cannot be excluded.. Poor definition left diaphragm as described above.
[2017-06-22 23:08] LABS: Eosinophils % (Auto) 0.3 % (0.0-4.3); Monocytes # (Auto) 0.5 K/mm3 (0.0-0.8); Monocytes % (Auto) 8.9 % (0.0-7.3)
[2017-06-22 23:33] LABS: Platelet Count 112 K/mm3 (140-440)
[2017-06-22 23:34] LABS: Basophils % (Auto) 0.5 % (0.0-1.8); Hematocrit 45.7 % (35.5-45.6); Hemoglobin 14.6 gm/dl (11.8-15.2); Lymphocytes # (Auto) 1.6 K/mm3 (1.2-5.4); Lymphocytes % (Auto) 27.1 % (13.4-35.0); Mean Corpuscular HGB Conc 32 % (32-34); Mean Corpuscular Hemoglobin 27 pg (28-32); Mean Corpuscular Volume 86 fl (84-94); Red Blood Count 5.32 M/mm3 (3.65-5.03); Red Cell Distribution Width 13.3 % (13.2-15.2)
[2017-06-23 00:27] VITALS: BP 112/56
== END 2017-06-23 00:42 | disposition other institution (70) ==
LOC: ED 21:09
DX: I63.9 Cerebral infarction, unspecified (principal); I50.9 Heart failure, unspecified; F12.10 Cannabis abuse, uncomplicated
CPT/HCPCS: 36415; 70450; 71045; 80053; 82550; 82553; 83880; 84484; 85025; 85610; 85730; 93005; 93010